=== PATIENT | female | born 1995 | race Caucasian/White ===

== ENCOUNTER 2016-09-16 21:35 | Outpatient (CLI) | payer MEDICAID ==
[2016-09-16] MEDS ORDERED: ACETAMINOPHEN 325 MG TABLET ONE (23:19)
[2016-09-16 23:41] LABS: APPEARANCE,URINE SLIGHTLY-CLOUDY; BILIRUBIN,URINE NEGATIVE (NEGATIVE); GLUCOSE, URINE NEGATIVE (NEGATIVE); KETONES,URINE NEGATIVE (NEGATIVE); LEUKOCYTE ESTERASE,URINE MODERATE (NEGATIVE); NITRITE,URINE NEGATIVE (NEGATIVE); PROTEIN,URINE NEGATIVE (NEGATIVE); URINE SPECIFIC GRAVITY 1.005; UROBILINOGEN,URINE NEGATIVE mg/dL (<2.0)
[2016-09-17 00:13] LABS: URINE BARBITURATES SCREEN NEGATIVE; URINE METHADONE SCREEN NEGATIVE; URINE OPIATES LOW NEGATIVE; URINE PHENCYCLIDINE SCREEN NEGATIVE
[2016-09-17] MEDS ORDERED: ZOLPIDEM TARTRATE 5 MG TABLET ONE (00:25)
[2016-09-17] MEDS ORDERED: ZOLPIDEM TARTRATE 5 MG TABLET PO ONE (00:30)
--- NOTE | 2016-09-17 01:02 | Non Stress Test Report ---
Non Stress Test Datetime Report Generated by CPN: 09/17/2016 01:02 DEMOGRAPHIC EGA NST: 39.0 INDICATION Indication for Study: Ordered by Provider VITAL SIGNS Temperature - NST: 98.0 Pulse - NST: 114 RESP - NST: 16 NBPSYS NST: 131 NBPDIA NST: 71 MONITORING Monitor Explained: Monitor Explained; Test Explained; Patient Verbalized Understanding Time on Monitor: 09/16/2016 21:49 Time off Monitor: 09/17/2016 00:31 NST Duration: 162 NST INTERVENTIONS NST Interventions: PO Hydration Physician Notified NST: Dr Neilsen BABY A: [id number] BABY A Movement : Present Contraction Frequency : irreg FHR Baseline : 150 Accelerations : 15X15 Decelerations : None Variability : Moderate 6-25bpm NST Review: Meets Criteria for Reactive NST NST Review and Verified By : SURI LORENZO Results: Reactive NST REPORT Report Trigger: Send Report
--- NOTE | 2016-09-17 04:46 | Antepartum Discharge Summary ---
Antepartum DC Datetime Report Generated by CPN: 09/17/2016 04:45 DIET/ACTIVITY/RESTRICTIONS Diet: Regular (09/17/2016 01:01:July Ledgerwood, RN) Activity: Normal Activity (09/17/2016 01:01:July Ledgerwood, RN) TEACHING/INSTRUCTIONS/REFERRALS Instructions Given To: pt (09/17/2016 01:01:July Ledgerwood, RN) Instructions Understood: Patient Verbalized Understanding (09/17/2016 01:01:July Ledgerwood, RN) Referrals: None (09/17/2016 01:01:July Baig RN) Educational Materials- Other: The Labor Process (09/17/2016 01:01:July Baig RN) DISCHARGE INFORMATION Discharged AMA: No (09/17/2016 01:01:July Baig RN) Physician Notified of Disch AMA: Dr Jones (09/17/2016 01:01:July Baig RN) Discharge Date/Time: 09/17/2016 00:44 (09/17/2016 01:01:July Baig RN) Discharged To: Home (09/17/2016 01:01:July Baig RN) Accompanied By: (09/17/2016 01:01:July Baig RN) Discharge Method: Wheelchair (09/17/2016 01:01:July Baig RN) Condition: Stable (09/17/2016 01:01:July Baig RN) FOLLOW UP INFORMATION Follow Up With: [facility] (09/17/2016 01:01:July Baig RN) Follow Up On: As Scheduled (09/17/2016 01:01:July Baig RN) Follow Up Phone Number: [facility] - (09/17/2016 01:01:July Baig RN) Comments: notified of pt's pain during contractions 4 oit 5. Ambien 10 mg was ordered. (09/17/2016 01:01:July Baig RN)
--- NOTE | 2016-09-17 04:46 | L&D Current Admission ---
Current Admit Datetime Report Generated by CPN: 09/17/2016 04:45 ADMISSION INFORMATION Chief Complaint: Contractions; Vaginal Bleeding 09/16/2016 21:54:COLTON Payne
--- NOTE | 2016-09-17 04:46 | L&D Discharge Summary ---
OB Discharge Summary Datetime Report Generated by CPN: 09/17/2016 04:45 DISCHARGE DIAGNOSIS Diagnosis/Symptoms: False Labor Diagnoses/Symptoms Other: Not in labor, no preeclampsia Gestation: 39.0 Number of Babies in Womb: 1 Parity: 0 DIET/ACTIVITY/RESTRICTIONS Diet: Regular Activity: Normal Activity TEACHING/INSTRUCTIONS/REFERRALS Instructions Given To: pt Instructions Understood: Patient Verbalized Understanding Referrals: None Educational Materials- Other: The Labor Process DISCHARGE INFORMATION Discharged AMA: No Physician Notified of Disch AMA: Dr Neilsen Discharge Date/Time: 09/17/2016 00:44 Discharged To: Home Discharge Provider Name: Lucie Carlson CNM Accompanied By: Discharge Method: Wheelchair Condition: Stable FOLLOW UP INFORMATION Follow Up With: [facility] Follow Up On: As Scheduled Follow Up Phone Number: [facility] - Comments: MD notified of pt's pain during contractions 4 oit 5. Ambien 10 mg was ordered.
--- NOTE | 2016-09-17 04:46 | L&D Flow Sheet ---
LD Flowsheet Datetime Report Generated by CPN: 09/17/2016 04:45 Datetime: 09/17/2016 00:31 Patient Care Comments: monitors off (July Ledgerwood, RN) Datetime: 09/17/2016 00:30 Uterine Activity Monitor Mode: External; Palpation ([facility], [facility]) Quality: Mild ([facility], RN) Duration (sec): 40-60 ([facility], ) Resting Tone (Palpate): Relaxed ([facility]) Assessment A Monitor Mode: External US ([facility], ) FHR Baseline Rate : 150 ([facility], ) Variability: Moderate 6-25 bpm ([facility]) Accelerations: 15X15 ([facility], RN) Decelerations: None ([facility], ) Teaching Instructional Method: Demo; Verbal; Written; Patient Instructed (July Reevesgerwood, RN) Related: Activity and Rest (July Ledgerwood, RN) Teaching Comments: The Labor Process (July Ledgerwood, RN) Datetime: 09/17/2016 00:28 Medications Analgesics/Sedatives: Ambien (mg) @ 10 (July Ledgerwood, RN) Datetime: 09/17/2016 00:16 Communication Communication: Provider Orders Received; Call/Page Placed to Provider (July Baig RN) Communication Comments: Dr Jones notified of pts progress. Order for 10 ambien po received and D/C order received. (July Baig, RN) Datetime: 09/17/2016 00:09 Vaginal Exam Dilatation (cm): 3.0 (July Baig, RN) Effacement (%): 80 (July Baig, RN) Station: -2 (July Baig, RN) Exam by: Lenard Baig RN (July Baig RN) Datetime: 09/16/2016 23:22 Medications Analgesics/Sedatives: Tylenol 650mg PO (Mare Lattibeaudeir, RN) Datetime: 09/16/2016 23:01 Patient Care Comments: monitors off, pt to walk for an hour. (July Ledgerwood, RN) Datetime: 09/16/2016 23:00 Uterine Activity Monitor Mode: External (July Ledgerwood, RN) Frequency (min): irregular (Nancy Kossmann, RN) Quality: Mild (Nancy Kossmann, RN) Duration (sec): 50-70 ([facility] Duration Criteria: Less than Two 120 Second Contractions ([facility]) Resting Tone (Palpate): Relaxed ([facility]) Assessment A Monitor Mode: External US (Nancy Kossmann, RN) FHR Baseline Rate : 150 (Nancy Magalysmann, RN) FHR Baseline Changes: No Baseline Change (July Ledgerwood, RN) Variability: Moderate 6-25 bpm (Nancy Kossmann, RN) Accelerations: 15X15 (Nancy Kossmann, RN) Decelerations: None (Nancy Kossmann, RN) Datetime: 09/16/2016 22:55 Communication Communication: Provider Orders Received (July Ledgerwood, RN) Communication Comments: Dr Neilse was notified of pt's change, order received to walk a pt for an hour and recheck. (July Ledgerwood, RN) Datetime: 09/16/2016 22:53 Vaginal Exam Dilatation (cm): 2.5 (July Ledgerwood, RN) Effacement (%): 80 (July Ledgerwood, RN) Station: -2 (July Ledgerwood, RN) Exam by: O Ledgerwood RN (July Ledgerwood, RN) Datetime: 09/16/2016 22:52 Vital Signs NBP Sys/Becca/Mean (mmHg): 131 (QS system process) : 71 (QS system process) : 93 (QS system process) Pulse: 114 (QS system process) Respirations: 16 (July Baig RN) LaborFlag: Antepartum (QS system process) Datetime: 09/16/2016 22:30 Uterine Activity Monitor Mode: External (July Baig, RN) Frequency (min): 3-5 (Nancy Obrien RN) Quality: Mild/Moderate (July Baig RN) Duration (sec): 30-90 (Nancy Obrien RN) Duration Criteria: Less than Two 120 Second Contractions (July Baig, RN) Pattern: Normal: <= 5 Contractions in 10 Minutes (July Baig RN) Resting Tone (Palpate): Relaxed (Nancy Obrien RN) Assessment A Monitor Mode: External US (Nancy Kossmann, RN) FHR Baseline Rate : 150 (Nancy Kossmann, RN) FHR Baseline Changes: No Baseline Change (July Ledgerwood, RN) Variability: Moderate 6-25 bpm (Nancy Kossmann, RN) Accelerations: None (July Ledgerwood, RN) Decelerations: None (July Ledgerwood, RN) Datetime: 09/16/2016 22:12 Patient Care I/O Interventions: Popsicle (July Ledgerwood, RN) Datetime: 09/16/2016 21:54 Pain Pain Scale: 4 ([facility]) Pain Presence: Intermittent ([facility]) Pain Type: Contraction ([facility]) Pain Location: Abdomen; Back ([facility]) Pain Coping: Breathing Through Contractions ([facility]) Vaginal Bleeding: pt repiorts vaginal bleeding ([facility]) Maternal Assessment Level of Consciousness: Fully Conscious ([facility]) DTR's/Clonus: DTRs 2+; No Clonus ([facility]) Headache: Denies ([facility]) Breath Sounds, Left: Clear and Equal (July Baig RN) Breath Sounds, Right: Clear and Equal (July Baig RN) Nausea/Vomiting: Denies (July Baig RN) RUQ Epigastric Pain: Denies (July Baig RN) Teaching Instructional Method: Demo; Verbal; Patient Instructed (July Baig RN) Plan of Care: Plan of Care Discussed (July Baig RN) Unit Routine: [place] to Room; Call Reese; Bed; Visiting Policy; Monitoring; Safety/Fall Risk Prevention (July Baig RN) LaborFlag: Antepartum (QS system process) Datetime: 09/16/2016 21:52 Vital Signs NBP Sys/Becca/Mean (mmHg): 126 (QS system process) : 83 (QS system process) : 98 (QS system process) Pulse: 111 (QS system process) Respirations: 16 (July Baig RN) LaborFlag: Antepartum (QS system process) Datetime: 09/16/2016 21:49 Vaginal Exam Dilatation (cm): 2.0 (July Baig RN) Effacement (%): 80 (July Baig RN) Station: -2 (July Baig RN) Exam by: Lenard Baig RN (July Baig RN) Vaginal Exam Comments: tight two (July Baig RN)
--- NOTE | 2016-09-17 04:46 | L&D General Admission ---
General Admit Datetime Report Generated by CPN: 09/17/2016 04:45 INFORMATION Patient Age: 21 (09/03/2016 11:54:QS system process) EDC: 09/23/2016 00:00 (09/03/2016 12:35:Lauren Rogers RN) : 1 (09/03/2016 12:35:Lauren Rogers RN) Para: 0 (09/03/2016 12:35:Nevaeh Owens RN) Term: 0 (09/03/2016 12:35:Lauren Rogers RN) : 0 (09/03/2016 12:35:Lauren Rogers RN) Spontaneous Abortions: 0 (09/03/2016 12:35:Lauren Rogers RN) Induced Abortions: 0 (09/03/2016 12:35:Lauren Rogers RN) Livin (09/03/2016 12:35:Lauren Rogers RN) Cesareans: 0 (09/03/2016 12:35:Mare Diehl RN) VBACs: 0 (09/03/2016 12:35:Mare Diehl RN) Ectopic: 0 (09/03/2016 12:35:Mare Diehl RN) Multiple Births: 0 (09/03/2016 12:35:Mare Diehl RN) Baby, Number in Womb: 1 (09/03/2016 12:35:Nevaeh Owens RN) CARE Primary Supervisor [employer]: [facility] (09/03/2016 12:35:Lauren Rogers RN) Supervisor [employer] Other: [facility] (09/03/2016 12:35:Lauren Rogers RN) Adequate Care: Yes (09/03/2016 12:35:July Baig RN) Prepregnancy Weight (lb): 124 (09/03/2016 12:35:Lauren Rogers RN) Prepregnancy Weight (kg): 56.4 (09/03/2016 12:35:QS system process) Height (in): 66 (09/17/2016 00:21:QS system process) Height (in): 66 (09/03/2016 12:28:QS system process) Height (in): 66 (09/03/2016 12:14:QS system process) ALLERGIES Medication Allergy: No (09/03/2016 12:35:Lauren Rogers RN) Medication Allergies: No Known Allergies (09/03/2016) (09/03/2016 12:12:QS system process) Medication Allergies: No Known Allergies (11/01/2014) (09/03/2016 11:54:QS system process) Latex Allergy: No Latex Allergies (09/03/2016 12:35:Lauren Rogers RN) COMMUNICATION Primary Language: Maori (09/03/2016 12:35:Lauren Rogers RN) Medical Tx Preferred Language: Maori (09/03/2016 12:35:Lauren Rogers RN) DEMOGRAPHICS Address: [facility] [address] [place] [address] (09/03/2016 11:54:QS system process) Zipcode: [address] (09/03/2016 11:54:QS system process) Home (09/16/2016 21:35:QS system process) Home (09/03/2016 11:54:QS system process) SSN: [id number] (09/03/2016 11:54:QS system process) Next of Kin Name: FARZAD VASQUEZ (09/03/2016 11:54:QS system process) Next of Kin (09/03/2016 11:54:QS system process) Next of Kin Relationship: OR (09/03/2016 11:54:QS system process) Date of : 1995 (09/03/2016 11:54:QS system process) Marital Status: Single (09/03/2016 11:54:QS system process) Sex: Female (09/03/2016 11:54:QS system process) Race: (09/03/2016 11:54:QS system process) Ethnicity: Non- or (09/03/2016 11:54:QS system process) Sabianist: None (09/03/2016 11:54:QS system process) DRUG AND ALCOHOL USE Alcohol: No (09/03/2016 12:35:Lauren Rogers RN) Cigarettes: Never Smoker. [id number] (09/03/2016 12:35:Lauren Rogers RN) Marijuana: No (09/03/2016 12:35:Lauren Rogers RN) Cocaine: No (09/03/2016 12:35:Lauren Rogers RN) Other Illicit Drugs: No (09/03/2016 12:35:Lauren Rogers RN) VACCINE HISTORY Influenza Vaccine: Yes (09/03/2016 12:35:Lauren Rogers RN) Influenza Date: 03/2016 (09/03/2016 12:35:Lauren Rogers RN) Pneumococcal Vaccine: No (09/03/2016 12:35:Lauren Rogers RN) Tetanus Vaccine: No (09/03/2016 12:35:Lauren Rogers RN) Tdap Vaccine: No (09/03/2016 12:35:Lauren Rogers RN) Hepatitis B Vaccine: No (09/03/2016 12:35:Lauren Rogers RN) Bottom Turning Lathe Tender: [facility] (09/03/2016 12:35:Lauren Rogers RN) Feeding Preference: Breast (09/03/2016 12:35:Lauren Rogers RN) Benefit of Breast Feed Discussed: Yes (09/03/2016 12:35:aLuren Rogers RN) Circumcision: Yes (09/03/2016 12:35:Lauren Rogers RN) Classes Attended: No (09/03/2016 12:35:Lauren Rogers RN) Tubal Ligation: No (09/03/2016 12:35:Lauren Rogers RN) Tubal Authorization Signed: N/A (09/03/2016 12:35:Lauren Rogers RN) Consent: N/A (09/03/2016 12:35:Lauren Rogers RN) Consent Signed: N/A (09/03/2016 12:35:Lauren Rogers RN) Pain Management Plans: Epidural (09/03/2016 12:35:Lauren Rogers RN) Plans for Labor and Delivery: None (09/03/2016 12:35:Lauren Rogers RN) Support Person: Farzad Vasquez (09/03/2016 12:35:Lauren Rogers RN) Support Person Relationship: Significant Other (09/03/2016 12:35:Lauren Rogers RN) Cultural/Spritual Practice: No (09/03/2016 12:35:Lauren Rogers RN) Spir/Cult Dietary Needs: No (09/03/2016 12:35:Lauren Rogers RN) LIVING SITUATION/DISCHARGE PLAN Living Arrangements: House (09/03/2016 12:35:Lauren Rogers RN) Adequate Access to:: Electric; Heat; Refrigeration; Plumbing/Running water; Phone; Transportation (09/03/2016 12:35:Lauren Rogers RN) WIC Program: Yes (09/03/2016 12:35:Lauren Rogers RN) Discharge Secretary Of State Person: Sig other (09/03/2016 12:35:Lauren Rogers RN) Person to Help after Discharge: Sig other (09/03/2016 12:35:Lauren Rogers RN) Currently Using Commun Resources: Yes (09/03/2016 12:35:Lauren Rogers RN) Specify Current Resource Used: food stamps (09/03/2016 12:35:Lauren Rogers RN) Outside Agency/Rn Lvn: No (09/03/2016 12:35:Lauren Rogers RN) Car Seat for Discharge: Yes (09/03/2016 12:35:Lauren Rogers RN) Adoption Requested: No (09/03/2016 12:35:Lauren Rogers RN) Pt Contact w/ Post : N/A (09/03/2016 12:35:Lauren Rogers RN) LABS Blood Type: B Negative (09/03/2016 12:35:Lauren Rogers RN) Antibody Screen: negative (09/03/2016 12:35:Lauren Rogers RN) Hemoglobin: 10.8 L (09/03/2016 13:27:QS system process) Hematocrit: 32.8 L (09/03/2016 13:27:QS system process) MCV: 78 L (09/03/2016 13:27:QS system process) Group Beta Strep: negative (09/03/2016 12:35:Lauren Rogers RN) Gonorrhea: Negative (09/03/2016 12:35:Lauren Rogers RN) Chlamydia: Negative (09/03/2016 12:35:Lauren Rogers RN) RPR/VDRL: Nonreactive (09/03/2016 12:35:Lauren Rogers RN) Rubella: Immune (09/03/2016 12:35:Lauren Rogers RN) Varicella: Non Susceptible (09/03/2016 12:35:Lauren Rogers RN) OB/PREVIOUS HISTORY Current Procedures: Ultrasound (09/03/2016 12:35:Lauren Rogers RN) History of Previous : No (09/03/2016 12:35:Lauren Rogers RN) History of Gestational Diabetes: No (09/03/2016 12:35:Lauren Rogers RN) History of PIH: No (09/03/2016 12:35:Lauren Rogers RN) History of Incompetent Cervix: No (09/03/2016 12:35:Lauren Rogers RN) History of Placenta Previa/Abrup: No (09/03/2016 12:35:Lauren Rogers RN) History of Macrosomia: No (09/03/2016 12:35:Lauren Rogers RN) History of IUGR: No (09/03/2016 12:35:Lauren Rogers RN) History of Hemorrhage: No (09/03/2016 12:35:Lauren Rogers RN) History of Loss/Stillborn: No (09/03/2016 12:35:Lauren Rogers RN) History of : No (09/03/2016 12:35:Lauren Rogers RN) History of D (Rh) Sensitization: No (09/03/2016 12:35:Lauren Rogers RN) History Recurrent Loss/Stillborn: No (09/03/2016 12:35:Lauren Rogers RN) History Depression/PP Depression: Yes (09/03/2016 12:35:Lauren Rogers RN) History of Uterine Anomaly/JEAN: No (09/03/2016 12:35:Lauren Rogers RN) History of Infertility: No (09/03/2016 12:35:Lauren Rogers RN) History of ART Treatment: No (09/03/2016 12:35:Lauren Rogers RN) History of JEAN: No (09/03/2016 12:35:Lauren Rogers RN) Comments Obstetrical History: G1: current (09/03/2016 12:35:Lauren Rogers RN) MEDICAL HISTORY Med Hx Diabetes: No (09/03/2016 12:35:Lauren Rogers RN) Med Hx Hypertension: No (09/03/2016 12:35:Lauren Rogers RN) Med Hx Heart Disease: No (09/03/2016 12:35:Lauren Rogers RN) Med Hx Autoimmune Disorder: No (09/03/2016 12:35:Lauren Rogers RN) Med Hx Kidney Disease/UTI: No (09/03/2016 12:35:Lauren Rogers RN) Med Hx Neurologic/Epilepsy: No (09/03/2016 12:35:Lauren Rogers RN) Med Hx Psychiatric Disorders: No (09/03/2016 12:35:Lauren Rogers RN) Med Hx Hepatitis/Liver Disease: No (09/03/2016 12:35:Lauren Rogers RN) Med Hx Varicosities/Phlebitis: No (09/03/2016 12:35:Lauren Rogers RN) Med Hx Thyroid Dysfunction: No (09/03/2016 12:35:Lauren Rogers RN) Med Hx Trauma/Violence: No (09/03/2016 12:35:Lauren Rogers RN) Med Hx Blood Transfusion: No (09/03/2016 12:35:Lauren Rogers RN) Med Hx Pulmonary (Asthma,TB): No (09/03/2016 12:35:Lauren Rogers RN) Med Hx Breast: No (09/03/2016 12:35:Lauren Rogers RN) Med Hx DIRECTOR REGULATORY AFFAIRS Surgery: No (09/03/2016 12:35:Lauren Rogers RN) Med Hx Hospitalization/Surgery: No (09/03/2016 12:35:Lauren Rogers RN) Med Hx Anesthetic Complications: No (09/03/2016 12:35:Lauren Rogers RN) Med Hx Abnormal Pap Smear: No (09/03/2016 12:35:Lauren Rogers RN) Other Medical Diseases: No (09/03/2016 12:35:Lauren Rogers RN) Med Hx Significant Family Hx: No (09/03/2016 12:35:Lauren Rogers RN) Details of Med/Surg Hx: depression _ anxiety (on zoloft), homicidal ideation in past (09/03/2016 12:35:Lauren Rogers RN) INFECTIOUS HISTORY Inf Hx Gonorrhea: No (09/03/2016 12:35:Lauren Rogers RN) Inf Hx Chlamydia: No (09/03/2016 12:35:Lauren Rogers RN) Inf Hx Syphilis: No (09/03/2016 12:35:Lauren Rogers RN) Inf Hx HIV/AIDS: No (09/03/2016 12:35:Lauren Rogers RN) Inf Hx Human Papilloma Virus: No (09/03/2016 12:35:Lauren Rogers RN) Inf Hx Pt/Partner Genital Herpes: No (09/03/2016 12:35:Lauren Rogers RN) Inf Hx Tuberculosis/Exposure: No (09/03/2016 12:35:Lauren Rogers RN) Inf Hx Hepatitis B,C: No (09/03/2016 12:35:Lauren Rogers RN) Inf Hx Rash or Viral Illness: No (09/03/2016 12:35:Lauren Rogers RN) GENETIC HISTORY Gen Hx Age >=35 at JOYCE: No (09/03/2016 12:35:Lauren Rogers RN) Gen Hx Thalassemia: No (09/03/2016 12:35:Lauren Rogers RN) Gen Hx Congenital Heart Defect: No (09/03/2016 12:35:Lauren Rogers RN) Gen Hx Neural Tube Defect: No (09/03/2016 12:35:Lauren Rogers RN) Gen Hx Down's Syndrome: No (09/03/2016 12:35:Lauren Rogers RN) Gen Hx Kenney-Sachs: No (09/03/2016 12:35:Lauren Rogers RN) Gen Hx Freddy: No (09/03/2016 12:35:Lauren Rogers RN) Gen Hx Familial Dysautonomia: No (09/03/2016 12:35:Lauren Rogers RN) Gen Hx Sickle Cell Disease/Trait: No (09/03/2016 12:35:Lauren Rogers RN) Gen Hx Hemophilia/Blood Disorder: No (09/03/2016 12:35:Lauren Rogers RN) Gen Hx Muscular Dystrophy: No (09/03/2016 12:35:Lauren Rogers RN) Gen Hx Cystic Fibrosis: No (09/03/2016 12:35:Lauren Rogers RN) Gen Hx Huntingtons Chorea: No (09/03/2016 12:35:Lauren Rogers RN) Gen Hx Mental Retardation/Autism: No (09/03/2016 12:35:Lauren Rogers RN) Gen Hx Tested for Fragile X: No (09/03/2016 12:35:Lauren Rogers RN) Gen Hx Other Inher/Chromosomal: No (09/03/2016 12:35:Lauren Rogers RN) Gen Hx Maternal Metabolic DO: No (09/03/2016 12:35:Lauren Rogers RN) Gen Hx Pt Father or FOB Defect: No (09/03/2016 12:35:Lauren Rogers RN) Gen Hx Other Genetic History: No (09/03/2016 12:35:Lauren Rogers RN) Gen Hx Drugs/Meds since LMP: Yes (09/03/2016 12:35:Lauren Rogers RN) Gen Hx Medications: PNV, Zoloft (09/03/2016 12:35:Lauren Rogers RN)
--- NOTE | 2016-09-17 04:46 | L&D Admission Assessment ---
LD ADM ASMT Datetime Report Generated by CPN: 09/17/2016 04:45 PATIENT ASSESSMENT Assessment Type: Triage (09/16/2016 21:54:[facility] WEIGHT Weight (lb): 176 (09/17/2016 00:21:QS system process) Weight (kg): 80.0 (09/17/2016 00:21:QS system process) Total Wt Gain (lb): 52 (09/17/2016 00:21:QS system process) Wt Gain (kg): 23.6 (09/17/2016 00:21:QS system process) BMI: 28.4 (09/17/2016 00:21:QS system process) PAIN Pain Scale: 4 (09/16/2016 21:54:July Baig RN) Pain Presence: Intermittent (09/16/2016 21:54:July Baig RN) Pain Type: Contraction (09/16/2016 21:54:July Baig RN) Pain Location: Abdomen; Back (09/16/2016 21:54:July Baig RN) CONTRACTIONS Frequency (min): irregular (09/16/2016 23:00:Nancy Obrien RN) Frequency (min): 3-5 (09/16/2016 22:30:Nancy Obrien RN) Duration (sec): 40-60 (09/17/2016 00:30:Nancy Obrien RN) Duration (sec): 50-70 (09/16/2016 23:00:July Baig RN) Duration (sec): 30-90 (09/16/2016 22:30:Nancy Obrien RN) Quality: Mild (09/17/2016 00:30:Nancy Obrien RN) Quality: Mild (09/16/2016 23:00:Nancy Obrien RN) Quality: Mild/Moderate (09/16/2016 22:30:July Baig RN) Pattern: Normal: <= 5 Contractions in 10 Minutes (09/16/2016 22:30:July Baig RN) Resting Tone [place]: Relaxed (09/17/2016 00:30:Nancy Obrien RN) Resting Tone [place]: Relaxed (09/16/2016 23:00:Nancy Obrien RN) Resting Tone [place]: Relaxed (09/16/2016 22:30:Nancy Obrien RN) VAGINAL EXAM Dilatation (cm): 3.0 (09/17/2016 00:09:July Baig RN) Dilatation (cm): 2.5 (09/16/2016 22:53:July Baig RN) Dilatation (cm): 2.0 (09/16/2016 21:49:July Baig RN) Effacement (%): 80 (09/17/2016 00:09:July Baig RN) Effacement (%): 80 (09/16/2016 22:53:uJly Baig RN) Effacement (%): 80 (09/16/2016 21:49:uJly Baig RN) Station: -2 (09/17/2016 00:09:July Baig RN) Station: -2 (09/16/2016 22:53:July Baig, SUIR) Station: -2 (09/16/2016 21:49:July Baig RN) NEURO Level of Consciousness: Fully Conscious (09/16/2016 21:54:July Baig RN) DTR's/Clonus: DTRs 2+; No Clonus (09/16/2016 21:54:July Baig RN) Headache: Denies (09/16/2016 21:54:July Baig RN) Dizziness: No (09/16/2016 21:54:July Baig RN) Blurred Vision: No (09/16/2016 21:54:July Baig RN) Extremity Numbness/Tingling : None (09/16/2016 21:54:July Baig RN) Extremity Movement: Full Range of Motion (09/16/2016 21:54:July Baig RN) CARDIOVASCULAR Nailbeds: [place] (09/16/2016 21:54:July [place], RN) Capillary Refill: Less than 3 Seconds (09/16/2016 21:54:July Led[place], RN) Facial Edema: None (09/16/2016 21:54:July Led[place], RN) Marco's Sign Left Leg: Negative (09/16/2016 21:54:July Led[place], RN) Marco's Sign Right Leg: Negative (09/16/2016 21:54:July [place], RN) RESPIRATORY Respiratory Effort: Unlabored; Regular Rhythm; Equal Expansion (09/16/2016 21:54:July Led[place], RN) Breath Sounds, Left: Clear and Equal (09/16/2016 21:54:July [place], RN) Breath Sounds, Right: Clear and Equal (09/16/2016 21:54:July [place], RN) Cough Productivity: None (09/16/2016 21:54:July Led[place], RN) GASTROINTESTINAL Nausea/Vomiting: Denies (09/16/2016 21:54:July Led[place], RN) Bowel Sounds: Normoactive; All Quadrants (09/16/2016 21:54:July Baig RN) RUQ Epigastric Pain: Denies (09/16/2016 21:54:July Baig RN) Bowel Patterns: Constipation (09/16/2016 21:54:July Baig RN) Hemorrhoids: None (09/16/2016 21:54:July Baig RN) Diet Type: Regular diet (09/16/2016 21:54:July Baig RN) Last Meal: 09/16/2016 19:30 (09/16/2016 21:54:July Baig RN) GENITOURINARY Bladder: Nondistended (09/16/2016 21:54:July Baig RN) Frequency of Urination: No (09/16/2016 21:54:July Baig RN) Urination Burning: No (09/16/2016 21:54:July Baig RN) CVA Tenderness: No (09/16/2016 21:54:July Baig RN) Vaginal Discharge Color: N/A (09/16/2016 21:54:July Baig RN) INTEGUMENTARY Skin Color: Normal for Race (09/16/2016 21:54:July Baig RN) Skin Temperature: Warm (09/16/2016 21:54:July Baig RN) Skin Moisture: Dry (09/16/2016 21:54:July Baig RN) VIOLETTE SKIN ASSESSMENT Violette Scale Sensory Perception: No Impairment- Responds to verbal commands. Has no sensory deficit which would limit ability to feel or voice pain or discomfort (09/16/2016 21:54:July Baig RN) Violette Scale Moisture: Rarely Moist- Skin is usually dry. Linen only requires changing at routine intervals (09/16/2016 21:54:July Baig RN) Violette Scale Activity: Walks Frequently- Walks outside the room at least twice a day and inside room at least every 2 hours during the day. (09/16/2016 21:54:July Baig RN) Violette Scale Mobility: No Limitations- Makes major and frequent changes in position without assistance (09/16/2016 21:54:July Baig RN) Violette Scale Nutrition: Excellent- Eats most of every meal. Never refuses a meal. Usually eats a total of 4 or more servings of meat and dairy products. Occasionally eats between meals. Does not require supplementation (09/16/2016 21:54:July Baig RN) Violette Scale Friction and Shear: No Apparent Problem- Moves in bed and in chair independently and has sufficient muscle strength to lift up completely during move. Maintains good position in bed or chair at all times (09/16/2016 21:54:July Baig RN) Violette Scale Total: 23 (09/16/2016 21:54:QS system process) Violette Scale Risk: No Risk of Pressure Ulcer Noted at this Time (09/16/2016 21:54:QS system process) SUPPORT Family Support: Significant Other supportive, at bedside frequently; Family supportive (09/16/2016 21:54:July Baig RN) Emotional State: Anxious (09/16/2016 21:54:July Baig RN) SAFETY Call [place] Within Reach: Yes (09/16/2016 21:54:July Baig RN) Side Rails Up: Yes (09/16/2016 21:54:July Baig RN) Bed Wheels Locked: Yes (09/16/2016 21:54:July Baig RN) Arm Bands Present: Yes (09/16/2016 21:54:July Baig RN) FALL SCREEN Fall Risk History of Falling: (0) No (09/16/2016 21:54:July Baig RN) Fall Risk Secondary Diagnosis: (0) No (09/16/2016 21:54:July Baig RN) Fall Risk Ambulatory Aid: (0) None/Bedrest/Wheelchair/Nurse Assist (09/16/2016 21:54:July Baig RN) Fall Risk IV Therapy: (0) No (09/16/2016 21:54:July Baig RN) Fall Risk Gait: (0) Normal/Bedrest/Immobile (09/16/2016 21:54:July Baig RN) Fall Risk Mental Status: (0) Oriented to Own Ability (09/16/2016 21:54:July Baig RN) Fall Risk Score: 0 (09/16/2016 21:54:QS system process) Fall Risk Score Definition: No Risk: No action required (09/16/2016 21:54:QS system process) RECENT TRAVEL/INFECTIOUS DISEASE Pt/Family Education: Handwashing Hygiene (09/16/2016 21:54:July Baig RN) BABY A FHR Baseline Rate (bpm) Baby A: 150 (09/17/2016 00:30:Nancy Obrien RN) FHR Baseline Rate (bpm) Baby A: 150 (09/16/2016 23:00:Nancy Obrien RN) FHR Baseline Rate (bpm) Baby A: 150 (09/16/2016 22:30:Nancy Obrien RN) Variability Baby A: Moderate 6-25 bpm (09/17/2016 00:30:Nancy Obrien RN) Variability Baby A: Moderate 6-25 bpm (09/16/2016 23:00:Nancy Obrien RN) Variability Baby A: Moderate 6-25 bpm (09/16/2016 22:30:Nancy Obrien RN) Accelerations Baby A: 15X15 (09/17/2016 00:30:Nancy Obrien RN) Accelerations Baby A: 15X15 (09/16/2016 23:00:Nancy Obrien RN) Accelerations Baby A: None (09/16/2016 22:30:July Baig RN) Decelerations Baby A: None (09/17/2016 00:30:Nancy Obrien RN) Decelerations Baby A: None (09/16/2016 23:00:Nancy Obrien RN) Decelerations Baby A: None (09/16/2016 22:30:July Baig RN)
== END 2016-09-17 00:44 | disposition home or self-care (01) ==
LOC: LC 21:35
PROVIDERS: ATTEND Specialist
PROC: 4A1HXCZ Monitoring of Products of Conception, Cardiac Rate, External Approach (ICD-10-PCS; principal; 2016-09-16)
DX: O47.1 False labor at or after 37 completed weeks of gestation (principal); Z3A.39 39 weeks gestation of pregnancy
CPT/HCPCS: 59025; 81005; 80307; J3490 ×2

== ENCOUNTER 2016-09-17 21:28 | Inpatient (IN) | payer MEDICAID ==
[2016-09-17 22:15] LABS: APPEARANCE,URINE TURBID; BILIRUBIN,URINE NEGATIVE (NEGATIVE); GLUCOSE, URINE NEGATIVE (NEGATIVE); KETONES,URINE 80 mg/dL (NEGATIVE); LEUKOCYTE ESTERASE,URINE MODERATE (NEGATIVE); NITRITE,URINE NEGATIVE (NEGATIVE); PROTEIN,URINE 100 mg/dL (NEGATIVE); URINE SPECIFIC GRAVITY 1.024; UROBILINOGEN,URINE NEGATIVE mg/dL (<2.0)
[2016-09-17 22:19] LABS: HEMATOCRIT 31.7 % (36.0-47.0); HEMOGLOBIN 10.2 g/dL (12.0-15.5); HGB HCT DIFFERENCE -1.1; MEAN CORPUSCULAR HEMOGLOBIN 24.5 pg (27.0-33.4); MEAN CORPUSCULAR HGB CONC 32.2 g/dL (32.0-36.0); MEAN CORPUSCULAR VOLUME 76 fl (80-97); RED BLOOD COUNT 4.16 10^6/uL (3.72-5.28); RED CELL DISTRIBUTION WIDTH 15.1 % (11.5-14.0); WHITE BLOOD COUNT 28.2 10^3/uL (4.0-10.5)
[2016-09-17 22:35] LABS: BAND NEUTROPHILS % (MANUAL) 2 % (3-5); BASOPHILS % (MANUAL) 0 % (0-2); EOSINOPHILS % (MANUAL) 0 % (0-6); LYMPHOCYTES % (MANUAL) 7 % (13-45); TOTAL CELLS COUNTED 100
[2016-09-17] MEDS ORDERED: RINGERS SOLUTION,LACTATED 1,000 ML IV PRN (22:35)
[2016-09-17 22:37] LABS: ANISOCYTOSIS SLIGHT; HYPOCHROMASIA SLIGHT; MICROCYTOSIS 1+; POLYCHROMASIA SLIGHT
[2016-09-17] MEDS ORDERED: FENTANYL CITRATE INJ/PF 100 MCG/2 ML AMPUL ONE (22:52)
[2016-09-17] MEDS ORDERED: PHENYLEPHRINE HCL INJ/PF 10 MG/1 ML SDV ONE (22:52)
[2016-09-17] MEDS ORDERED: FENTANYL/BUPIVACAINE/NS/PF 200 MCG/100 ML RTUINJ EPI ONE (22:52)
[2016-09-17] MEDS ORDERED: EPHEDRINE SULFATE INJ 50 MG/1 ML AMPULE ONE (22:52)
[2016-09-17] MEDS ORDERED: OXYTOCIN/NORMAL SALINE 0 UNIT/0 ML RTUINJ ONE (22:53)
[2016-09-17] MEDS ORDERED: LIDOCAINE 1% INJ-PF (10 MG/ML) 30 ML SDV ONE (22:53)
[2016-09-17] MEDS ORDERED: MISOPROSTOL 0.2 MG TABLET ONE (22:53)
[2016-09-17] MEDS ORDERED: BUPIVACAINE HCL 0.25 % INJ/PF (2.5 MG/1 ML) 30 ML VIAL ONE (22:53)
[2016-09-18] MEDS ORDERED: CEFAZOLIN 2 GM/D5W RTU 2 GM/50 ML RTUPB IV ONE (03:43)
[2016-09-18] MEDS ORDERED: CITRIC ACID/SODIUM CITRATE ORAL SOLN 15 ML UDCUP ONE (03:43)
[2016-09-18] MEDS ORDERED: SODIUM BICARBONATE 8.4% INJ 50 MEQ/50 ML DISP.SYRIN ONE (03:45)
[2016-09-18] MEDS ORDERED: LIDOCAINE 2%/EPINEPHRINE INJ 20 ML VIAL ONE (03:45)
[2016-09-18] MEDS ORDERED: ACETAMINOPHEN 100 ML IV PRN (03:48)
[2016-09-18] MEDS ORDERED: OXYTOCIN/NORMAL SALINE 1,000 ML IV PRN (03:48)
[2016-09-18] MEDS ORDERED: MEASLES,MUMPS&RUBELLA VACC/PF 0.5 ML VIAL SUBCUT PRN (03:48)
[2016-09-18] MEDS ORDERED: OXYCODONE-ACETAMINOPHEN 5-325 MG TABLET PO PRN ×3 (03:48→04:46)
[2016-09-18] MEDS ORDERED: PROMETHAZINE HCL INJ 25 MG/1 ML VIAL IV PRN ×3 (03:48→04:46)
[2016-09-18] MEDS ORDERED: DIPH/PERTUSS(ACELL)/TETANUS VAC/PF 0.5 ML SYR (>=10YO) IM PRN (03:48)
[2016-09-18] MEDS ORDERED: RINGERS SOLUTION,LACTATED 1,000 ML IV PRN (03:48)
[2016-09-18] MEDS ORDERED: SIMETHICONE 80 MG TAB.CHEW PO PRN (03:48)
[2016-09-18] MEDS ORDERED: ACETAMINOPHEN 325 MG TABLET PO PRN (03:48)
[2016-09-18] MEDS ORDERED: OXYTOCIN 10 UNIT/ML VIAL ONE ×2 (03:54→04:21)
[2016-09-18] MEDS ORDERED: FENTANYL CITRATE INJ/PF 100 MCG/2 ML AMPUL ONE (03:54)
[2016-09-18] MEDS ORDERED: FENTANYL CITRATE INJ/PF 250 MCG/5 ML AMPULE ONE (03:55)
[2016-09-18] MEDS ORDERED: EPHEDRINE SULFATE INJ 50 MG/1 ML AMPULE ONE (03:55)
[2016-09-18] MEDS ORDERED: ONDANSETRON HCL INJ/PF 4 MG/2 ML SDV ONE (03:55)
[2016-09-18] MEDS ORDERED: MIDAZOLAM 2 MG/2 ML INJ ONE (03:55)
[2016-09-18] MEDS ORDERED: OXYTOCIN/NORMAL SALINE 20 UNIT/1,000 ML RTUINJ ONE (03:55)
[2016-09-18] MEDS ORDERED: KETOROLAC TROMETHAMINE INJ/PF 30 MG/1 ML SDV IV ONE (04:15)
[2016-09-18] MEDS ORDERED: MISOPROSTOL 0.2 MG TABLET ONE (04:25)
--- NOTE | 2016-09-18 04:43 | Operative Report ---
Operative Report DATE OF SURGERY: 09/18/16 PREOPERATIVE DIAGNOSIS: CPD macrosomia POSTOPERATIVE DIAGNOSIS: Same OPERATION: via low transverse uterine incision SURGEON: JERICHO BASHIR ANESTHESIA: Epidural TISSUE REMOVED OR ALTERED: Placenta COMPLICATIONS: None ESTIMATED BLOOD LOSS: 250 mL INTRAOPERATIVE FINDINGS: Viable baby boy Apgars 6 and 8 4069 g PROCEDURE: Patient was taken to the OR and placed in supine position after her spinal anesthesia. She is prepared and draped in sterile fashion. [place] was placed for drainage of the bladder. Low transverse incision was made and carried down the level of the fascia. The fascial incision was made with knife and extended bilaterally with curved Velásquez scissors. The fascia was off the rectus muscles using sharp and blunt dissection. The rectus muscles are in the midline. The peritoneum was entered without incident. Bladder blade was placed in uterine segment was identified. A low transverse incision was made creating a bladder flap. Bladder blade was placed low transverse uterine incision was made with the csafe knife and extended with fingertips. The baby was delivered with some fundal pressure. Mouth and nose were suctioned free. The cord is doubly clamped and cut. Baby is passed off to the nuisance animal damage control agent in attendance. The placenta was manually extracted with trailing membranes. The uterus was externalized wrapped in a moist lap sponge. Uterine contents wiped free. Uterus was closed with a running locking layer of 0 chromic suture using the second layer to imbricate the first completing a double layer closure of the uterus. The serosa was closed with a running 2-0 chromic stitch. The pelvis was irrigated and suctioned free of fluid the uterus was replaced in the abdomen. The abdominal wall peritoneum was closed with running 2-0 chromic stitch. Fascia was closed with a running 0 Vicryl in 2 segments. Cole's layer was brought together with 0 plain gut stitch and the skin was closed with skin christina. The wound was dressed mother and baby did well.
[2016-09-18] MEDS ORDERED: DIPHENHYDRAMINE HCL 50 MG/ML VIAL IV PRN (04:46)
[2016-09-18] MEDS ORDERED: MEPERIDINE HCL/PF INJ 25 MG/1 ML DISP.SYRIN IV PRN (04:46)
[2016-09-18] MEDS ORDERED: MORPHINE SULFATE 10 MG/ML INJ IV PRN (04:46)
[2016-09-18] MEDS ORDERED: FENTANYL CITRATE INJ/PF 100 MCG/2 ML AMPUL IV PRN ×3 (04:46)
[2016-09-18] MEDS ORDERED: MORPHINE SULFATE 10 MG/ML INJ ONE (05:26)
[2016-09-18] MEDS ORDERED: ACETAMINOPHEN 325 MG TABLET ONE (06:39)
--- NOTE | 2016-09-18 06:49 | Admission Physical ---
Datetime Report Generated by CPN: 09/18/2016 06:48 CURRENT ADMISSION Chief Complaint: Uterine Contractions Indication for Induction: Not Applicable Admit Plan: Admit to Unit; Initiate Labor Protocol ALLERGIES Medication Allergies: No Medication Allergies: No Known Allergies (09/18/2016) Medication Allergies: No Known Allergies (09/03/2016) Medication Allergies: No Known Allergies (11/01/2014) Latex: No Latex Allergies Food Allergies: none Environmental Allergies: none OBSTETRICAL HISTORY EDC: 09/23/2016 00:00 : 1 Para: 0 Term: 0 : 0 SAB: 0 IAB: 0 Ectopic: 0 Livin Cesareans: 0 VBACs: 0 Multiple Births: 0 Gestational Diabetes: No Rh Sensitization: No Incompetent Cervix: No JEAN: No Infertility: No ART Treatment: No Uterine Anomaly: No IUGR: No Hx Previous C/S: No Macrosomia: No Hx Loss/Stillborn: No PIH: No Hx : No Placenta Previa/Abruption: No Depression/PP Depression: No PTL/PROM: No Post Hemorrhage: No Current Procedures: Ultrasound Obstetrical History Comments: G1: current SEE RECORDS Alcohol: No Marijuana : No Cocaine: No Other Illicit Drugs: No Cigarettes: Never Smoker. 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: No Heart Disease: No Hosp/Surgery: No Autoimmune Disorder: No Anesthetic Complications: No Kidney Disease: No Abnormal Pap Smear: No Neuro/Epilepsy: No Psychiatric Disorders: No Other Medical Diseases: No Hepatitis/Liver Disease: No Significant Family History: No Varicosities/Phlebitis: No Trauma/Violence : No Thyroid Dysfunction: No Medical History Comments: depression _ anxiety (on zoloft), homicidal ideation in past INFECTIOUS HISTORY Gonorrhea: No Genital Herpes: No Chlamydia: No Tuberculosis: No Syphilis: No Hepatitis: No HIV/AIDS Exposure: No Rash or Viral Illness: No HPV: No PHYSICAL EXAM General: Normal HEENT: Normal Neurologic: Normal Thyroid: Normal Heart: Normal Lungs: Normal Breast: Deferred Back: Normal Abdomen: Normal Genitourinary Exam: Normal Extremities: Normal DTRs: Normal Pelvic Type: Adequate Vital Signs: Reviewed VAGINAL EXAM Dilatation: 9 Effacement: 80 Station: 0 MEMBRANES Pooling: Positive Membranes: Ruptured FETUS A EGA: 39.1 Monitoring: External US FHR- Baseline: 160 Variability: Minimal - Undetectable to <=5bpm Decelerations: None FHR Category: Category I Admit Comment: efw is 7-8 lbs PLANS FOR LABOR AND DELIVERY Labor and Delivery: None Pain Management: Epidural Feeding Preference: Breast Benefit of Breast Feed Discussed: Yes Circumcision: Yes INFORMED CONSENT Signature: with User ID: [email or web address]
--- NOTE | 2016-09-18 07:01 | L&D Flow Sheet ---
LD Flowsheet Datetime Report Generated by CPN: 09/18/2016 07:00 Datetime: 09/18/2016 06:28 NBP Sys/Becca/Mean (mmHg): 132 (QS system process) : 68 (QS system process) : 94 (QS system process) Pulse: 113 (QS system process) Datetime: 09/18/2016 06:27 Pulse: 112 (QS system process) SpO2 (%): 99 (QS system process) Datetime: 09/18/2016 06:22 Pulse: 113 (QS system process) SpO2 (%): 97 (QS system process) Datetime: 09/18/2016 06:17 Pulse: 112 (QS system process) SpO2 (%): 96 (QS system process) Datetime: 09/18/2016 06:13 NBP Sys/Becca/Mean (mmHg): 129 (QS system process) : 72 (QS system process) : 94 (QS system process) Pulse: 109 (QS system process) Datetime: 09/18/2016 06:12 Pulse: 108 (QS system process) SpO2 (%): 98 (QS system process) Datetime: 09/18/2016 06:07 Pulse: 108 (QS system process) SpO2 (%): 98 (QS system process) Datetime: 09/18/2016 06:02 Pulse: 111 (QS system process) SpO2 (%): 98 (QS system process) Datetime: 09/18/2016 05:58 NBP Sys/Becca/Mean (mmHg): 135 (QS system process) : 68 (QS system process) : 95 (QS system process) Pulse: 110 (QS system process) Datetime: 09/18/2016 05:57 Pulse: 108 (QS system process) SpO2 (%): 99 (QS system process) Datetime: 09/18/2016 05:52 Pulse: 109 (QS system process) SpO2 (%): 99 (QS system process) Datetime: 09/18/2016 05:47 Pulse: 105 (QS system process) SpO2 (%): 98 (QS system process) Datetime: 09/18/2016 05:43 NBP Sys/Becca/Mean (mmHg): 130 (QS system process) : 65 (QS system process) : 91 (QS system process) Pulse: 110 (QS system process) Datetime: 09/18/2016 05:42 Pulse: 109 (QS system process) SpO2 (%): 99 (QS system process) Datetime: 09/18/2016 05:37 Pulse: 117 (QS system process) SpO2 (%): 99 (QS system process) Datetime: 09/18/2016 05:32 Pulse: 111 (QS system process) SpO2 (%): 100 (QS system process) Datetime: 09/18/2016 05:30 NBP Sys/Becca/Mean (mmHg): 132 (QS system process) : 67 (QS system process) : 91 (QS system process) Pulse: 117 (QS system process) Datetime: 09/18/2016 05:27 Pulse: 122 (QS system process) SpO2 (%): 98 (QS system process) Datetime: 09/18/2016 05:22 Pulse: 113 (QS system process) SpO2 (%): 100 (QS system process) Datetime: 09/18/2016 05:17 Pulse: 125 (QS system process) SpO2 (%): 99 (QS system process) Datetime: 09/18/2016 05:12 Pulse: 126 (QS system process) SpO2 (%): 99 (QS system process) Datetime: 09/18/2016 05:07 Pulse: 112 (QS system process) SpO2 (%): 100 (QS system process) Datetime: 09/18/2016 05:02 Pulse: 130 (QS system process) SpO2 (%): 97 (QS system process) Datetime: 09/18/2016 05:00 Pulse: 124 (QS system process) SpO2 (%): 94 (QS system process) Datetime: 09/18/2016 04:58 NBP Sys/Becca/Mean (mmHg): 110 (QS system process) : 55 (QS system process) : 73 (QS system process) Pulse: 130 (QS system process) Datetime: 09/18/2016 04:57 Pulse: 129 (QS system process) SpO2 (%): 100 (QS system process) Datetime: 09/18/2016 04:53 Pulse: 127 (QS system process) SpO2 (%): 89 (QS system process) Datetime: 09/18/2016 04:52 Pulse: 130 (QS system process) SpO2 (%): 97 (QS system process) Datetime: 09/18/2016 04:47 Pulse: 117 (QS system process) SpO2 (%): 98 (QS system process) Datetime: 09/18/2016 04:43 NBP Sys/Becca/Mean (mmHg): 123 (QS system process) : 60 (QS system process) : 86 (QS system process) Pulse: 126 (QS system process) Datetime: 09/18/2016 04:42 Pulse: 132 (QS system process) SpO2 (%): 98 (QS system process) Datetime: 09/18/2016 04:40 Stage of : Recovery (July Baig RN) Temperature (F): 99.3 (July Baig RN) Temperature (C): 37.4 (QS system process) Temperature Route: Oral (July Baig RN) Pain Scale: 3 (July Baig RN) Pain Presence: Constant (July Baig RN) Pain Type: Cramping (July Baig RN) Pain Location: Abdomen (July Ledgerwood, RN) Datetime: 09/18/2016 03:49 Patient Care Comments: pt out of the room to OR (July Ledgerwood, RN) Datetime: 09/18/2016 03:45 Monitor Mode: External (July Ledgerwood, RN) Frequency (min): 2-2.5 (July Ledgerwood, RN) Quality: Strong (July Ledgerwood, RN) Duration (sec): 50-60 (July Ledgerwood, RN) Duration Criteria: Less than Two 120 Second Contractions (July Ledgerwood, RN) Pattern: Normal: <= 5 Contractions in 10 Minutes (July Ledgerwood, RN) Resting Tone (Palpate): Relaxed (July Ledgerwood, RN) Monitor Mode: External US (July Ledgerwood, RN) FHR Baseline Rate : 155 (July Ledgerwood, RN) FHR Baseline Changes: No Baseline Change (July Ledgerwood, RN) Variability: Moderate 6-25 bpm (July Ledgerwood, RN) Accelerations: None (July Ledgerwood, RN) Decelerations: Early (July Ledgerwood, RN) Datetime: 09/18/2016 03:35 NBP Sys/Becca/Mean (mmHg): 134 (QS system process) : 71 (QS system process) : 93 (QS system process) Pulse: 134 (QS system process) LaborFlag: Antepartum (QS system process) Datetime: 09/18/2016 03:30 Monitor Mode: External (July Baig, RN) Frequency (min): 2-2.5 (July Baig, RN) Quality: Moderate to Strong (July Ledgerwood, RN) Duration (sec): 50-60 (July Lalagerwood, RN) Duration Criteria: Less than Two 120 Second Contractions (July Reevesgerophelia, RN) Pattern: Normal: <= 5 Contractions in 10 Minutes (July Lalagerwood, RN) Resting Tone (Palpate): Relaxed (July Baig, RN) Monitor Mode: External US (July Baig, RN) FHR Baseline Rate : 150 (July Baig, RN) FHR Baseline Changes: No Baseline Change (July Ledgerwood, RN) Variability: Moderate 6-25 bpm (July Ledgerwood, RN) Accelerations: 10X10 (July Ledgerwood, RN) Decelerations: Early (July Ledgerwood, RN) Datetime: 09/18/2016 03:20 NBP Sys/Becca/Mean (mmHg): 150 (QS system process) : 66 (QS system process) : 96 (QS system process) Pulse: 142 (QS system process) LaborFlag: Antepartum (QS system process) Datetime: 09/18/2016 03:19 NBP Sys/Becca/Mean (mmHg): 137 (QS system process) : 77 (QS system process) : 101 (QS system process) Pulse: 141 (QS system process) LaborFlag: Antepartum (QS system process) Datetime: 09/18/2016 03:17 Communication: Provider at Bedside (July Ledgerwood, RN) Communication Comments: Dr Schmitt calls . (July Ledgerwood, RN) Datetime: 09/18/2016 03:15 Monitor Mode: External (July Ledgerwood, RN) Frequency (min): 2-2.5 (July Ledgerwood, RN) Quality: Moderate to Strong (July Ledgerwood, RN) Duration (sec): 50-60 (July Ledgerwood, RN) Duration Criteria: Less than Two 120 Second Contractions (July Ledgerwood, RN) Pattern: Normal: <= 5 Contractions in 10 Minutes (July Ledgerwood, RN) Resting Tone (Palpate): Relaxed (July Ledgerwood, RN) Monitor Mode: External US (July Ledgerwood, RN) FHR Baseline Rate : 160 (July Ledgerwood, RN) FHR Baseline Changes: No Baseline Change (July Ledgerwood, RN) Variability: Moderate 6-25 bpm (July Ledgerwood, RN) Accelerations: None (July Ledgerwood, RN) Decelerations: Late; Variable (July Ledgerwood, RN) Datetime: 09/18/2016 03:12 Communication: Provider at Bedside (July Baig RN) Communication Comments: Dr Schmitt at bedside. (July Baig RN) Datetime: 09/18/2016 03:04 NBP Sys/Becca/Mean (mmHg): 130 (QS system process) : 66 (QS system process) : 91 (QS system process) Pulse: 148 (QS system process) LaborFlag: Antepartum (QS system process) Datetime: 09/18/2016 03:00 Monitor Mode: External (July Baig RN) Frequency (min): 1.5-2 (July Baig RN) Quality: Moderate to Strong (July Ledgerwood, RN) Duration (sec): 50-60 (July Ledgerwood, RN) Duration Criteria: Less than Two 120 Second Contractions (July Ledgerwood, RN) Pattern: Normal: <= 5 Contractions in 10 Minutes (July Ledgerwood, RN) Resting Tone (Palpate): Relaxed (July Ledgerwood, RN) Monitor Mode: External US (July Ledgerwood, RN) FHR Baseline Rate : 160 (July Ledgerwood, RN) FHR Baseline Changes: No Baseline Change (July Ledgerwood, RN) Variability: Moderate 6-25 bpm (July Ledgerwood, RN) Accelerations: 15X15 (July Ledgerwood, RN) Decelerations: Variable (July Ledgerwood, RN) Datetime: 09/18/2016 02:49 NBP Sys/Becca/Mean (mmHg): 136 (QS system process) : 73 (QS system process) : 98 (QS system process) Pulse: 146 (QS system process) LaborFlag: Antepartum (QS system process) Datetime: 09/18/2016 02:45 Monitor Mode: External (July Ledgerwood, RN) Frequency (min): 1.5-2 (July Ledgerwood, RN) Quality: Strong (July Ledgerwood, RN) Duration (sec): 50-60 (July Ledgerwood, RN) Duration Criteria: Less than Two 120 Second Contractions (July Ledgerwood, RN) Pattern: Normal: <= 5 Contractions in 10 Minutes (July Ledgerwood, RN) Resting Tone (Palpate): Relaxed (July Ledgerwood, RN) Monitor Mode: External US (July Ledgerwood, RN) FHR Baseline Rate : 160 (July Ledgerwood, RN) FHR Baseline Changes: No Baseline Change (July Ledgerwood, RN) Variability: Moderate 6-25 bpm (July Ledgerwood, RN) Accelerations: 15X15 (July Ledgerwood, RN) Decelerations: Early (July Ledgerwood, RN) Datetime: 09/18/2016 02:34 NBP Sys/Becca/Mean (mmHg): 145 (QS system process) : 71 (QS system process) : 99 (QS system process) Pulse: 144 (QS system process) LaborFlag: Antepartum (QS system process) Datetime: 09/18/2016 02:30 Monitor Mode: External (July Ledgerwood, RN) Frequency (min): 1.5-2.5 (July Ledgerwood, RN) Quality: Strong (July Ledgerwood, RN) Duration (sec): 50-60 (July Ledgerwood, RN) Duration Criteria: Less than Two 120 Second Contractions (July Ledgerwood, RN) Pattern: Normal: <= 5 Contractions in 10 Minutes (July Ledgerwood, RN) Resting Tone (Palpate): Relaxed (July Ledgerwood, RN) Monitor Mode: External US (July Ledgerwood, RN) FHR Baseline Rate : 160 (July Ledgerwood, RN) FHR Baseline Changes: No Baseline Change (July Ledgerwood, RN) Variability: Moderate 6-25 bpm (July Ledgerwood, RN) Accelerations: 15X15 (Ujly Ledgerwood, RN) Decelerations: Variable (July Ledgerwood, RN) Datetime: 09/18/2016 02:19 NBP Sys/Becca/Mean (mmHg): 134 (QS system process) : 71 (QS system process) : 95 (QS system process) Pulse: 127 (QS system process) LaborFlag: Antepartum (QS system process) Datetime: 09/18/2016 02:15 Monitor Mode: External (Angeles Pruitt, RN) Frequency (min): 1.5-2 (Angeles Pruitt, RN) Duration (sec): 60-130 (Angeles Pruitt, RN) Pattern: Normal: <= 5 Contractions in 10 Minutes (Angeles Pruitt, RN) Monitor Mode: External US (Angeles Pruitt, RN) FHR Baseline Rate : 160 (Angeles Pruitt, RN) Variability: Moderate 6-25 bpm (Angeles Pruitt, RN) Accelerations: 15X15 (Angeles Puritt, RN) Decelerations: Late; Variable (Angeles Pruitt, RN) Datetime: 09/18/2016 02:05 NBP Sys/Becca/Mean (mmHg): 134 (QS system process) : 86 (QS system process) : 104 (QS system process) Pulse: 125 (QS system process) LaborFlag: Antepartum (QS system process) Datetime: 09/18/2016 01:59 Monitor Mode: External (Angeles Pruitt, RN) Frequency (min): 2-2.5 (Angeles Pruitt, RN) Duration (sec): 60-90 (Angeles Pruitt, RN) Pattern: Normal: <= 5 Contractions in 10 Minutes (Angeles Pruitt, RN) Monitor Mode: External US (Angeles Pruitt, RN) FHR Baseline Rate : 160 (Angeles Pruitt, RN) Variability: Moderate 6-25 bpm (Angeles Pruitt, RN) Accelerations: 15X15 (Angeles Pruitt, RN) Decelerations: Variable (Angeles Pruitt, RN) Datetime: 09/18/2016 01:49 NBP Sys/Becca/Mean (mmHg): 140 (QS system process) : 74 (QS system process) : 99 (QS system process) Pulse: 117 (QS system process) LaborFlag: Antepartum (QS system process) Datetime: 09/18/2016 01:45 Monitor Mode: External (Angeles Pruitt, RN) Frequency (min): 1-2.5 (Angeles Pruitt, RN) Duration (sec): 60-100 (Angeles Pruitt, RN) Pattern: Normal: <= 5 Contractions in 10 Minutes (Angeles Pruitt, RN) Monitor Mode: External US (Angeles Pruitt, RN) FHR Baseline Rate : 160 (Angeles Pruitt, RN) Variability: Moderate 6-25 bpm (Angeles Pruitt, RN) Accelerations: 15X15 (Angeles Pruitt, RN) Decelerations: Variable (Angeles Pruitt, RN) Pushing Position: Pushing with Contractions (July Ledgerwood, RN) Pushing Progress: Pushing Effectively with Contractions (July Ledgerwood, RN) Datetime: 09/18/2016 01:34 NBP Sys/Becca/Mean (mmHg): 136 (QS system process) : 79 (QS system process) : 100 (QS system process) Pulse: 122 (QS system process) LaborFlag: Antepartum (QS system process) Datetime: 09/18/2016 01:33 Pushing: Coached on Pushing; Urge to Push (July Ledgerwood, RN) Pushing Position: Pushing with Contractions (July Ledgerwood, RN) Datetime: 09/18/2016 01:30 Monitor Mode: External (Angeles Pruitt, RN) Frequency (min): 2.5-3 (Angeles Pruitt, RN) Duration (sec): 70-110 (Angeles Pruitt, RN) Pattern: Normal: <= 5 Contractions in 10 Minutes (Angeles Pruitt, RN) Monitor Mode: External US (Angeles Pruitt, RN) FHR Baseline Rate : 160 (Angeles Pruitt, RN) Variability: Moderate 6-25 bpm (Angeles Pruitt, RN) Accelerations: 15X15 (Angeles Pruitt, RN) Decelerations: None (Angeles Pruitt, RN) Datetime: 09/18/2016 01:25 Dilatation (cm): 10.0 (July Ledgerwood, RN) Effacement (%): 100 (July Ledgerwood, RN) Station: 1 (July Ledgerwood, RN) Exam by: O Safia RN (July Ledgerwood, RN) Datetime: 09/18/2016 01:20 NBP Sys/Becca/Mean (mmHg): 139 (QS system process) : 80 (QS system process) : 103 (QS system process) Pulse: 127 (QS system process) LaborFlag: Antepartum (QS system process) Datetime: 09/18/2016 01:15 Monitor Mode: External (Angeles Pruitt, RN) Frequency (min): 1.5-2 (Angeles Pruitt, RN) Duration (sec): 60-110 (Angeles Pruitt, RN) Pattern: Normal: <= 5 Contractions in 10 Minutes (Angeles Pruitt, RN) Monitor Mode: External US (Angeles Pruitt, RN) FHR Baseline Rate : 160 (Angeles Pruitt, RN) Variability: Moderate 6-25 bpm (Angeles Pruitt, RN) Accelerations: 10X10 (Angeles Pruitt, RN) Decelerations: None (Angeles Pruitt, RN) Datetime: 09/18/2016 01:04 NBP Sys/Becca/Mean (mmHg): 136 (QS system process) : 89 (QS system process) : 107 (QS system process) Pulse: 117 (QS system process) LaborFlag: Antepartum (QS system process) Datetime: 09/18/2016 01:00 Monitor Mode: External (Angeles Pruitt, RN) Frequency (min): 2-3 (Angeles Pruitt, RN) Duration (sec): 60-80 (Angeles Pruitt, RN) Pattern: Normal: <= 5 Contractions in 10 Minutes (Angeles Pruitt, RN) Monitor Mode: External US (Angeles Pruitt, RN) FHR Baseline Rate : 160 (Angeles Pruitt, RN) Variability: Moderate 6-25 bpm (Angeles Pruitt, RN) Accelerations: 10X10 (Angeles Pruitt, RN) Decelerations: Early (Angeles Pruitt, RN) Datetime: 09/18/2016 00:49 NBP Sys/Becca/Mean (mmHg): 136 (QS system process) : 91 (QS system process) : 107 (QS system process) Pulse: 108 (QS system process) LaborFlag: Antepartum (QS system process) Datetime: 09/18/2016 00:45 Monitor Mode: External (Angeles Pruitt, RN) Frequency (min): 2-3 (Angeles Pruitt, RN) Duration (sec): 70-90 (Angeles Pruitt, RN) Pattern: Normal: <= 5 Contractions in 10 Minutes (Angeles Pruitt, RN) Resting Tone (Palpate): Relaxed (Angeles Pruitt, RN) Monitor Mode: External US (Angeles Pruitt, RN) FHR Baseline Rate : 160 (Angeles Pruitt, RN) Variability: Moderate 6-25 bpm (Angeles Pruitt, RN) Accelerations: 15X15 (Angeles Pruitt, RN) Decelerations: None (Angeles Pruitt, RN) Datetime: 09/18/2016 00:34 NBP Sys/Becca/Mean (mmHg): 132 (QS system process) : 82 (QS system process) : 101 (QS system process) Pulse: 110 (QS system process) LaborFlag: Antepartum (QS system process) Datetime: 09/18/2016 00:30 Monitor Mode: External (July Baig, RN) Frequency (min): 2-3 (July Ledgerwood, RN) Quality: Moderate to Strong (July Ledgerwood, RN) Duration (sec): 60-70 (July Ledgerwood, RN) Duration Criteria: Less than Two 120 Second Contractions (July Ledgerwood, RN) Pattern: Normal: <= 5 Contractions in 10 Minutes (July Ledgerwood, RN) Resting Tone (Palpate): Relaxed (July Ledgerwood, RN) Monitor Mode: External US (July Baig, RN) FHR Baseline Rate : 155 (July Baig, RN) FHR Baseline Changes: No Baseline Change (July Lalagerwood, RN) Variability: Moderate 6-25 bpm (July Ledgerwood, RN) Accelerations: None (July Ledgerwood, RN) Decelerations: Early (July Ledgerwood, RN) Datetime: 09/18/2016 00:19 NBP Sys/Becca/Mean (mmHg): 146 (QS system process) : 84 (QS system process) : 108 (QS system process) Pulse: 107 (QS system process) LaborFlag: Antepartum (QS system process) Datetime: 09/18/2016 00:04 NBP Sys/Becca/Mean (mmHg): 123 (QS system process) : 73 (QS system process) : 94 (QS system process) Pulse: 115 (QS system process) LaborFlag: Antepartum (QS system process) Datetime: 09/18/2016 00:00 Monitor Mode: External (July Ledgerwood, RN) Frequency (min): 1.5-3 (July Ledgerwood, RN) Quality: Moderate to Strong (July Ledgerwood, RN) Duration (sec): 50-70 (July Ledgerwood, RN) Duration Criteria: Less than Two 120 Second Contractions (July Ledgerwood, RN) Pattern: Normal: <= 5 Contractions in 10 Minutes (July Ledgerwood, RN) Resting Tone (Palpate): Relaxed (July Ledgerwood, RN) Monitor Mode: External US (July Ledgerwood, RN) FHR Baseline Rate : 155 (July Ledgerwood, RN) FHR Baseline Changes: No Baseline Change (July Ledgerwood, RN) Variability: Moderate 6-25 bpm (July Ledgerwood, RN) Accelerations: None (July Ledgerwood, RN) Decelerations: Variable (July Ledgerwood, RN) Datetime: 09/17/2016 23:49 NBP Sys/Becca/Mean (mmHg): 138 (QS system process) : 84 (QS system process) : 105 (QS system process) Pulse: 106 (QS system process) LaborFlag: Antepartum (QS system process) Datetime: 09/17/2016 23:33 NBP Sys/Becca/Mean (mmHg): 135 (QS system process) : 68 (QS system process) : 96 (QS system process) Pulse: 109 (QS system process) LaborFlag: Antepartum (QS system process) Datetime: 09/17/2016 23:32 NBP Sys/Becca/Mean (mmHg): 139 (QS system process) : 67 (QS system process) : 95 (QS system process) Pulse: 105 (QS system process) LaborFlag: Antepartum (QS system process) Datetime: 09/17/2016 23:31 NBP Sys/Becca/Mean (mmHg): 133 (QS system process) : 79 (QS system process) : 99 (QS system process) Pulse: 110 (QS system process) LaborFlag: Antepartum (QS system process) Datetime: 09/17/2016 23:30 NBP Sys/Becca/Mean (mmHg): 136 (QS system process) : 75 (QS system process) : 99 (QS system process) Pulse: 110 (QS system process) Monitor Mode: External; Palpation (July Baig RN) Frequency (min): 2-2.5 (July Baig RN) Quality: Strong (July Baig, SURI) Duration (sec): 80-90 (July Baig, SURI) Duration Criteria: Less than Two 120 Second Contractions (July Baig RN) Pattern: Normal: <= 5 Contractions in 10 Minutes (July Baig, SURI) Resting Tone (Palpate): Relaxed (July Baig, SURI) Monitor Mode: External US (July Baig RN) FHR Baseline Rate : 150 (July Baig RN) FHR Baseline Changes: No Baseline Change (July Baig, RN) Variability: Moderate 6-25 bpm (July Baig, RN) Accelerations: 15X15 (July Baig, RN) Decelerations: Variable (July Baig RN) I/O Interventions: [place] Cath Inserted (July Baig RN) Patient Care Comments: 14 F by Lenard Baig RN (July Baig RN) LaborFlag: Antepartum (QS system process) Datetime: 09/17/2016 23:29 NBP Sys/Becca/Mean (mmHg): 133 (QS system process) : 85 (QS system process) : 103 (QS system process) Pulse: 118 (QS system process) Dilatation (cm): 9.5 (July Baig RN) Station: 0 (July Baig RN) Exam by: Lenard Baig RN (July Baig RN) LaborFlag: Antepartum (QS system process) Datetime: 09/17/2016 23:28 NBP Sys/Becca/Mean (mmHg): 136 (QS system process) : 87 (QS system process) : 106 (QS system process) Pulse: 115 (QS system process) LaborFlag: Antepartum (QS system process) Datetime: 09/17/2016 23:27 NBP Sys/Becca/Mean (mmHg): 131 (QS system process) : 75 (QS system process) : 96 (QS system process) Pulse: 126 (QS system process) LaborFlag: Antepartum (QS system process) Datetime: 09/17/2016 23:26 NBP Sys/Becca/Mean (mmHg): 137 (QS system process) : 80 (QS system process) : 103 (QS system process) Pulse: 110 (QS system process) LaborFlag: Antepartum (QS system process) Datetime: 09/17/2016 23:25 NBP Sys/Becca/Mean (mmHg): 138 (QS system process) : 94 (QS system process) : 108 (QS system process) Pulse: 126 (QS system process) Pulse: 127 (QS system process) SpO2 (%): 100 (QS system process) LaborFlag: Antepartum (QS system process) Datetime: 09/17/2016 23:21 NBP Sys/Becca/Mean (mmHg): 165 (QS system process) : 100 (QS system process) : 124 (QS system process) Pulse: 122 (QS system process) LaborFlag: Antepartum (QS system process) Datetime: 09/17/2016 23:20 NBP Sys/Becca/Mean (mmHg): 165 (QS system process) : 94 (QS system process) : 122 (QS system process) Pulse: 127 (QS system process) Pulse: 125 (QS system process) SpO2 (%): 99 (QS system process) LaborFlag: Antepartum (QS system process) Datetime: 09/17/2016 23:19 Anesthesia Plans: Epidural (July Reevesgerwood, RN) Epidural Positioning: Sitting (July Reevesgerwood, RN) Epidural Procedure: Test Dose (July Lalagerwood, RN) Datetime: 09/17/2016 23:16 Procedure Verify: Correct Patient Identity; Correct Side and Site are Marked; Agreement on Procedure to be Done; Correct Patient Position (July Reevesgerwood, RN) Anesthesia Plans: Epidural (July Reevesgerwood, RN) Epidural Positioning: Sitting (July Reevesgerwood, RN) Datetime: 09/17/2016 23:15 Communication: Provider at Bedside (July Sabillonwood, RN) Communication Comments: Dr Patton at bedside. (July Lalagerwood, RN) Datetime: 09/17/2016 23:10 Procedure Verify: Correct Patient Identity; Correct Side and Site are Marked; Agreement on Procedure to be Done; Correct Patient Position (July Ledgerwood, RN) Anesthesia Plans: Epidural (July Ledgerwood, RN) Datetime: 09/17/2016 23:00 Monitor Mode: External (July Ledgerwood, RN) Frequency (min): 2.5-4.5 (July Ledgerwood, RN) Quality: Moderate to Strong (July Ledgerwood, RN) Duration (sec): 70-90 (July Ledgerwood, RN) Duration Criteria: Less than Two 120 Second Contractions (July Ledgerwood, RN) Pattern: Normal: <= 5 Contractions in 10 Minutes (July Ledgerwood, RN) Resting Tone (Palpate): Relaxed (July Ledgerwood, RN) Monitor Mode: External US (July Ledgerwood, RN) FHR Baseline Rate : 160 (July Ledgerwood, RN) FHR Baseline Changes: No Baseline Change (July Ledgerwood, RN) Variability: Moderate 6-25 bpm (July Ledgerwood, RN) Accelerations: 10X10 (July Ledgerwood, RN) Decelerations: None (July Ledgerwood, RN) Datetime: 09/17/2016 22:59 Procedure Verify: Correct Patient Identity; Correct Side and Site are Marked; Accurate Procedure Consent Form; Agreement on Procedure to be Done; Correct Patient Position; Relevant Images and Results are Properly Labeled and Displayed; Addressed Need to Administer Antibiotics or Fluids for Irrigation; Safety Precautions Based on Patient History or Medication Use (Shannan Luis RN) Anesthesia Comments: Dr Patton notified of pt wanting epidural. (Shannan Luis RN) Datetime: 09/17/2016 22:30 Monitor Mode: External (July Baig, RN) Frequency (min): 2.5-3.5 (July Baig, RN) Quality: Moderate to Strong (July Baig, RN) Duration (sec): 60-80 (July Baig, RN) Duration Criteria: Less than Two 120 Second Contractions (July Baig, RN) Pattern: Normal: <= 5 Contractions in 10 Minutes (July Baig, RN) Resting Tone (Palpate): Relaxed (July Baig, RN) Monitor Mode: External US (July Baig, RN) FHR Baseline Rate : 160 (July Ledgerwood, RN) FHR Baseline Changes: No Baseline Change (July Ledgerwood, RN) Variability: Moderate 6-25 bpm (July Ledgerwood, RN) Accelerations: 15X15 (July Ledgerwood, RN) Decelerations: None (July Ledgerwood, RN) Datetime: 09/17/2016 22:28 Procedures: Consents Signed (Shannan Toby, RN) Datetime: 09/17/2016 22:21 NBP Sys/Becca/Mean (mmHg): 143 (QS system process) : 87 (QS system process) : 110 (QS system process) Pulse: 106 (QS system process) LaborFlag: Antepartum (QS system process) Datetime: 09/17/2016 22:15 IV/Blood Work: Labs Drawn (Shannan Toby, RN) Datetime: 09/17/2016 22:04 Vaginal Bleeding: None (Shannan Toby, RN) Breath Sounds, Left: Clear and Equal (Shannan Toby, RN) Breath Sounds, Right: Clear and Equal (Shannan Toby, RN) Nausea/Vomiting: Present (Annotations: nausea) (Shannan Toby, RN) Datetime: 09/17/2016 22:00 Monitor Mode: External; Palpation (July Ledgerwood, RN) Frequency (min): 3-7 (July Ledgerwood, RN) Quality: Moderate to Strong (July Ledgerwood, RN) Duration (sec): 60-70 (July Ledgerwood, RN) Duration Criteria: Less than Two 120 Second Contractions (July Ledgerwood, RN) Pattern: Normal: <= 5 Contractions in 10 Minutes (July Reevesgerwood, RN) Resting Tone (Palpate): Relaxed (July Reevesgerwood, RN) Monitor Mode: External US (July Baig, RN) FHR Baseline Rate : 160 (July Lalagerwood, RN) FHR Baseline Changes: No Baseline Change (July Ledgerwood, RN) Variability: Moderate 6-25 bpm (July Ledgerwood, RN) Accelerations: 10X10 (July Lalagerwood, RN) Decelerations: Variable (July Reevesgerophelia, RN) IV/Blood Work: IV Started; IV Bolus Started (Shannan Luis, RN) Datetime: 09/17/2016 21:50 Dilatation (cm): 9.0 (Shannan Luis, RN) Station: 0 (Shannan Luis, RN) Exam by: JERRY Connelly (Shannan Luis, RN) Datetime: 09/17/2016 21:45 Temperature (F): 98.3 (July Baig, RN) Temperature (C): 36.8 (QS system process) Temperature Route: Oral (July Baig RN) Membranes Ruptured Date/Time: 09/17/2016 21:45 (Shannan Luis RN) Membranes Rupture Method: Spontaneous (Shannan Luis RN) Amniotic Fluid Color: Clear (Shannan Luis RN) Amniotic Fluid Amount: Moderate (Shannan Luis RN) Amniotic Fluid Odor: Normal (Shannan Luis RN) LaborFlag: Antepartum (QS system process)
[2016-09-18] MEDS: KETOROLAC TROMETHAMINE INJ/PF 30 MG/1 ML SDV IV SCH ×3 (07:12→22:09)
--- NOTE | 2016-09-18 07:12 | Delivery Summary ---
Del Sum A-C Datetime Report Generated by CPN: 09/18/2016 07:12 ADMISSION DATA Chief Complaint: Uterine Contractions Indication for Induction: Not Applicable Admission Impression: Active Labor Admit Provider Comments: efw is 7-8 lbs DELIVERY PERSONNEL Delivery Doctor:: Melvin Schmitt MD Labor and Delivery Nurse:: July Baig RN Director Of Rooms/STORE PERSON: ST Yolanda Director Of Rooms/STORE PERSON: ST Jumana Additional Personnel: : Gustavo Ertel, STORE PERSON MATERNAL INFORMATION Delivery Anesthesia: Epidural Medications After Delivery: Pitocin Bolus-Please Comment; Pitocin Drip 20 Units/1000ml NSS; Other-Please Comment Meds After Delivery Comment: Cytotec 1000 mcg rectum Estimated Blood Loss (ml): 700 Maternal Complications: Other Other Maternal Complications: CPD LABOR SUMMARY EDC: 09/23/2016 00:00 No. Babies in Womb: 1 Attempted: No Labor Anesthesia: Epidural LABOR INFORMATION Reason for Induction: Not Applicable Onset of Labor: 09/17/2016 21:50 Complete Dilatation: 09/18/2016 01:25 Oxytocin: N/A Group B Beta Strep: negative Antibiotics # of Doses: n/a Antibiotics Time of Last Dose: n/a Name of Antibiotic Given: n/a Steroids Given: None Reason Steroids Not Administered: Not Applicable MEMBRANES Membranes Rupture Method: Spontaneous Rupture of Membranes: 09/17/2016 21:45 Length of Rupture (hr): 6.40 Amniotic Fluid Color: Clear Amniotic Fluid Amount: Moderate Amniotic Fluid Odor: Normal STAGES OF LABOR Stage 1 hr: 3 Stage 1 min: 35 Stage 2 hr: 2 Stage 2 min: 44 Stage 3 hr: 0 Stage 3 min: 1 Total Time in Labor hr: 6 Total Time in Labor min: 20 CSECTION DELIVERY Primary Indication: Other Other Primary Indication: CPD CSection Incision: Lower Uterine Transverse BABY A INFORMATION Delivery Date/Time: 09/18/2016 04:09 Method of Delivery: Born in Route : No : N/A Forceps: N/A Vacuum Extraction: N/A Shoulder Dystocia : No PRESENTATION/POSITION BABY A Presentation: Cephalic Breech Presentation: N/A PLACENTA INFORMATION BABY A Placenta Delivery Time : 09/18/2016 04:10 Placenta Method of Delivery: Manual Removal Placenta Status: Delivered SCORES BABY A Heart Rate 1 min: >100 bpm Resp Effort 1 min: Good Cry Reflex Irritability 1 min: Grimace Muscle Tone 1 min: Some Flexion of Extremities Color 1 min: Blue/Pale Resuscitation Effort 1 min: Oxygen; PPV/NCPAP SCORE 1 MIN: 6 Heart Rate 5 min: >100 bpm Resp Effort 5 min: Good Cry Reflex Irritability 5 min: Cough or Sneeze or Pulls Away Muscle Tone 5 min: Some Flexion of Extremities Color 5 min: Body [place], Extremities Blue SCORE 5 MIN: 8 INFANT INFORMATION BABY A Gestational Age at Delivery: 39.2 Gestational Status: Full Term- 39- 40.6 Weeks Outcome : Liveborn Condition : Stable Sex: Male IDENTIFICATION BABY A Verification Date/Time: 09/18/2016 04:21 ID Band Number: [id number] Mother's Name Verified: Yes RN Verifying Infant: SYonatan Diehl, RN Additional Verifying Personnel: RYonatan Schumacher, STORE PERSON WEIGHT/LENGTH BABY A Birthweight (gm): 4069 Weight (lb): 9 Weight (oz): 0 Infant Length (in): 20.00 Length (cm): 50.80 CORD INFORMATION BABY A No. Cord Vessels: 3 Nuchal Cord : N/A Cord Blood Taken: Yes-For Eval (Mom's Blood Type - or O+) ASSESSMENT BABY A Skin to Skin: Yes Skin to Skin Time (min): 5
[2016-09-18] MEDS: PRENATAL VITAMIN W-O CA NO5/FE FUMARATE/FA CAPSULE PO SCH (10:15)
[2016-09-18] MEDS: OXYCODONE-ACETAMINOPHEN 5-325 MG TABLET PO PRN ×2 (10:15→18:20)
[2016-09-18] MEDS: DOCUSATE SODIUM 100 MG CAPSULE PO SCH ×2 (10:15→18:23)
[2016-09-18] MEDS: CEFTRIAXONE 1 GM/D5W RTU 1 GM/50 ML RTUPB IV SCH (15:34)
--- NOTE | 2016-09-18 18:01 | L&D General Admission ---
General Admit Datetime Report Generated by CPN: 09/18/2016 18:00 INFORMATION Patient Age: 21 (09/03/2016 11:54:QS system process) EDC: 09/23/2016 00:00 (09/03/2016 12:35:Lauren Rogers RN) : 1 (09/03/2016 12:35:Lauren Rogers RN) Para: 0 (09/03/2016 12:35:Nevaeh Owens RN) Term: 0 (09/03/2016 12:35:Lauren Rogers RN) : 0 (09/03/2016 12:35:Lauren Rogers RN) Spontaneous Abortions: 0 (09/03/2016 12:35:Lauren Rogers RN) Induced Abortions: 0 (09/03/2016 12:35:Lauren Rogers RN) Livin (09/03/2016 12:35:Lauren Rogers RN) Cesareans: 0 (09/03/2016 12:35:Mare Diehl RN) VBACs: 0 (09/03/2016 12:35:Mare iDehl RN) Ectopic: 0 (09/03/2016 12:35:Mare Diehl RN) Multiple Births: 0 (09/03/2016 12:35:Mare Diehl RN) Baby, Number in Womb: 1 (09/03/2016 12:35:Nevaeh Owens RN) CARE Primary Cloth Winding Supervisor: [facility] (09/03/2016 12:35:Lauren Rogers RN) Cloth Winding Supervisor Other: [facility] (09/03/2016 12:35:Lauren Rogers RN) Adequate Care: Yes (09/03/2016 12:35:July Baig RN) Prepregnancy Weight (lb): 124 (09/03/2016 12:35:Lauren Rogers RN) Prepregnancy Weight (kg): 56.4 (09/03/2016 12:35:QS system process) Height (in): 66 (09/18/2016 06:47:QS system process) ALLERGIES Medication Allergy: No (09/03/2016 12:35:Lauren Rogers RN) Medication Allergies: No Known Allergies (09/18/2016) (09/18/2016 01:38:QS system process) Latex Allergy: No Latex Allergies (09/03/2016 12:35:Lauren Rogers RN) Food Allergies: none (09/03/2016 12:35:Angeles Pruitt RN) Environmental Allergies: none (09/03/2016 12:35:Angeles Pruitt RN) COMMUNICATION Primary Language: Venezuelan (09/03/2016 12:35:Lauren Roegrs RN) Medical Tx Preferred Language: Venezuelan (09/03/2016 12:35:Lauren Rogers RN) DEMOGRAPHICS Address: [address] [place] [address] [place] [address] (09/03/2016 11:54:QS system process) Zipcode: [address] (09/03/2016 11:54:QS system process) Home (09/16/2016 21:35:QS system process) SSN: [id number] (09/03/2016 11:54:QS system process) Next of Kin Name: FARZAD LASSARD (09/03/2016 11:54:QS system process) Next of Kin (09/03/2016 11:54:QS system process) Next of Kin Relationship: OR (09/03/2016 11:54:QS system process) Date of : 1995 (09/03/2016 11:54:QS system process) Marital Status: Single (09/03/2016 11:54:QS system process) Sex: Female (09/03/2016 11:54:QS system process) Race: (09/03/2016 11:54:QS system process) Ethnicity: Non- or (09/03/2016 11:54:QS system process) Scientologist: None (09/03/2016 11:54:QS system process) DRUG AND ALCOHOL USE Alcohol: No (09/03/2016 12:35:Lauren Rogers RN) Cigarettes: Never Smoker. [id number] (09/03/2016 12:35:Lauren Rogers RN) Marijuana: No (09/03/2016 12:35:Lauren Rogers RN) Cocaine: No (09/03/2016 12:35:Lauren Rogers RN) Other Illicit Drugs: No (09/03/2016 12:35:Lauren Rogers RN) VACCINE HISTORY Influenza Vaccine: Yes (09/03/2016 12:35:Lauren Rogers RN) Influenza Date: 03/2016 (09/03/2016 12:35:Lauren Rogers RN) Pneumococcal Vaccine: No (09/03/2016 12:35:Lauren Rogers RN) Tetanus Vaccine: No (09/03/2016 12:35:Lauren oRgers RN) Tdap Vaccine: No (09/03/2016 12:35:Lauren Rogers RN) Hepatitis B Vaccine: No (09/03/2016 12:35:Lauren Rogers RN) Lmft: [facility] (09/03/2016 12:35:Lauren Rogers RN) Feeding Preference: Breast (09/03/2016 12:35:Lauren Rogers RN) Benefit of Breast Feed Discussed: Yes (09/03/2016 12:35:Lauren Rogers RN) Circumcision: Yes (09/03/2016 12:35:Lauren Rogers RN) Classes Attended: No (09/03/2016 12:35:Lauren Rogers RN) Tubal Ligation: No (09/03/2016 12:35:Lauren Rogers RN) Tubal Authorization Signed: N/A (09/03/2016 12:35:Lauren Rogers RN) Consent: N/A (09/03/2016 12:35:Lauren Rogers RN) Consent Signed: N/A (09/03/2016 12:35:Lauren Rogers RN) Pain Management Plans: Epidural (09/03/2016 12:35:Lauren Rogers RN) Plans for Labor and Delivery: None (09/03/2016 12:35:Lauren Rogers RN) Support Person: Farzad Ho (09/03/2016 12:35:Lauren Rogers RN) Support Person Relationship: Significant Other (09/03/2016 12:35:Lauren Rogers RN) Cultural/Spritual Practice: No (09/03/2016 12:35:Lauren Rogers RN) Spir/Cult Dietary Needs: No (09/03/2016 12:35:Lauren Rogers RN) LIVING SITUATION/DISCHARGE PLAN Living Arrangements: House (09/03/2016 12:35:Lauren Rogers RN) Adequate Access to:: Electric; Heat; Refrigeration; Plumbing/Running water; Phone; Transportation (09/03/2016 12:35:Lauren Rogers RN) WIC Program: Yes (09/03/2016 12:35:Lauren Rogers RN) Discharge Punch Box Tender Person: Sig other (09/03/2016 12:35:Lauren Rogers RN) Person to Help after Discharge: Sig other (09/03/2016 12:35:Lauren Rogers, RN) Currently Using Commun Resources: Yes (09/03/2016 12:35:Lauren Rogers RN) Specify Current Resource Used: food stamps (09/03/2016 12:35:Lauren Rogers RN) Outside Agency/Electric Screw Driver Operator: No (09/03/2016 12:35:Lauren Rogers RN) Car Seat for Discharge: Yes (09/03/2016 12:35:Lauern Rogers RN) Adoption Requested: No (09/03/2016 12:35:Lauren Rogers RN) Pt Contact w/ Post : N/A (09/03/2016 12:35:Lauren Rogers RN) LABS Blood Type: A Positive (09/03/2016 12:35:Lauren Rogers RN) Antibody Screen: negative (09/03/2016 12:35:Lauren Rogers RN) Hemoglobin: 10.2 L (09/17/2016 22:07:QS system process) Hematocrit: 31.7 L (09/17/2016 22:07:QS system process) MCV: 76 L (09/17/2016 22:07:QS system process) Group Beta Strep: negative (09/03/2016 12:35:Lauren Rogers RN) Gonorrhea: Negative (09/03/2016 12:35:Lauren Rogers RN) Chlamydia: Negative (09/03/2016 12:35:Lauren Rogers RN) RPR/VDRL: Nonreactive (09/03/2016 12:35:Lauren Rogers RN) Rubella: Immune (09/03/2016 12:35:Lauren Rogers RN) Varicella: Non Susceptible (09/03/2016 12:35:Lauren Rogers RN) OB/PREVIOUS HISTORY Current Procedures: Ultrasound (09/03/2016 12:35:Lauren Rogers RN) History of Previous : No (09/03/2016 12:35:Lauren Rogers RN) History of Gestational Diabetes: No (09/03/2016 12:35:Lauren Rogers RN) History of PIH: No (09/03/2016 12:35:Lauren Rogers RN) History of Incompetent Cervix: No (09/03/2016 12:35:Lauren Rogers RN) History of Placenta Previa/Abrup: No (09/03/2016 12:35:Lauren Rogers RN) History of Macrosomia: No (09/03/2016 12:35:Lauren Rogers RN) History of IUGR: No (09/03/2016 12:35:Lauren Rogers RN) History of Hemorrhage: No (09/03/2016 12:35:Lauren Rogers RN) History of Loss/Stillborn: No (09/03/2016 12:35:Lauren Rogers RN) History of : No (09/03/2016 12:35:Lauren Rogers RN) History of D (Rh) Sensitization: No (09/03/2016 12:35:Lauren Rogers RN) History Recurrent Loss/Stillborn: No (09/03/2016 12:35:Lauren Rogers RN) History Depression/PP Depression: No (09/03/2016 12:35:Angeles Pruitt RN) History of Uterine Anomaly/JEAN: No (09/03/2016 12:35:Lauren Rogers RN) History of Infertility: No (09/03/2016 12:35:Lauren Rogers RN) History of ART Treatment: No (09/03/2016 12:35:Lauren Rogers RN) History of JEAN: No (09/03/2016 12:35:Lauren Rogers RN) Comments Obstetrical History: G1: current (09/03/2016 12:35:Lauren Rogers RN) MEDICAL HISTORY Med Hx Diabetes: No (09/03/2016 12:35:Lauren Rogers RN) Med Hx Hypertension: No (09/03/2016 12:35:Lauren Rogers RN) Med Hx Heart Disease: No (09/03/2016 12:35:Lauren Rogers RN) Med Hx Autoimmune Disorder: No (09/03/2016 12:35:Lauren Rogers RN) Med Hx Kidney Disease/UTI: No (09/03/2016 12:35:Lauren Rogers RN) Med Hx Neurologic/Epilepsy: No (09/03/2016 12:35:Lauren Rogers RN) Med Hx Psychiatric Disorders: No (09/03/2016 12:35:Lauren Rogers RN) Med Hx Hepatitis/Liver Disease: No (09/03/2016 12:35:Lauren Rogers RN) Med Hx Varicosities/Phlebitis: No (09/03/2016 12:35:Lauren Rogers RN) Med Hx Thyroid Dysfunction: No (09/03/2016 12:35:Lauren Rogers RN) Med Hx Trauma/Violence: No (09/03/2016 12:35:Lauren Rogers RN) Med Hx Blood Transfusion: No (09/03/2016 12:35:Lauren Rogers RN) Med Hx Pulmonary (Asthma,TB): No (09/03/2016 12:35:Lauren Rogers RN) Med Hx Breast: No (09/03/2016 12:35:Lauren Rogers RN) Med Hx PHOTOVOLTAIC TESTING TECHNICIAN Surgery: No (09/03/2016 12:35:Lauren Rogers RN) Med Hx Hospitalization/Surgery: No (09/03/2016 12:35:Lauren Rogers RN) Med Hx Anesthetic Complications: No (09/03/2016 12:35:Lauren Rogers RN) Med Hx Abnormal Pap Smear: No (09/03/2016 12:35:Lauren Rogers RN) Other Medical Diseases: No (09/03/2016 12:35:Lauren Rogers RN) Med Hx Significant Family Hx: No (09/03/2016 12:35:Lauren Rogers RN) Details of Med/Surg Hx: depression _ anxiety (on zoloft), homicidal ideation in past (09/03/2016 12:35:Lauren Rogers RN) INFECTIOUS HISTORY Inf Hx Gonorrhea: No (09/03/2016 12:35:Lauren Rogers RN) Inf Hx Chlamydia: No (09/03/2016 12:35:Lauren Rogers RN) Inf Hx Syphilis: No (09/03/2016 12:35:Lauren Rogers RN) Inf Hx HIV/AIDS: No (09/03/2016 12:35:Lauren Rogers RN) Inf Hx Human Papilloma Virus: No (09/03/2016 12:35:Lauren Rogers RN) Inf Hx Pt/Partner Genital Herpes: No (09/03/2016 12:35:Lauren Rogers RN) Inf Hx Tuberculosis/Exposure: No (09/03/2016 12:35:Lauren Rogers RN) Inf Hx Hepatitis B,C: No (09/03/2016 12:35:Lauren Rogers RN) Inf Hx Rash or Viral Illness: No (09/03/2016 12:35:Lauren Rogers RN) GENETIC HISTORY Gen Hx Age >=35 at JOYCE: No (09/03/2016 12:35:Lauren Rogers RN) Gen Hx Thalassemia: No (09/03/2016 12:35:Lauren Rogers RN) Gen Hx Congenital Heart Defect: No (09/03/2016 12:35:Lauren Rogers RN) Gen Hx Neural Tube Defect: No (09/03/2016 12:35:Lauren Rogers RN) Gen Hx Down's Syndrome: No (09/03/2016 12:35:Lauren Rogers RN) Gen Hx Keneny-Sachs: No (09/03/2016 12:35:Lauren Rogers RN) Gen Hx Freddy: No (09/03/2016 12:35:Lauren Rogers RN) Gen Hx Familial Dysautonomia: No (09/03/2016 12:35:Lauren Rogers RN) Gen Hx Sickle Cell Disease/Trait: No (09/03/2016 12:35:Lauren Rogers RN) Gen Hx Hemophilia/Blood Disorder: No (09/03/2016 12:35:Lauren Rogers RN) Gen Hx Muscular Dystrophy: No (09/03/2016 12:35:Lauren Rogers RN) Gen Hx Cystic Fibrosis: No (09/03/2016 12:35:Lauren Rogers RN) Gen Hx Huntingtons Chorea: No (09/03/2016 12:35:Lauren Rogers RN) Gen Hx Mental Retardation/Autism: No (09/03/2016 12:35:Lauren Rogers RN) Gen Hx Tested for Fragile X: No (09/03/2016 12:35:Lauren Rogers RN) Gen Hx Other Inher/Chromosomal: No (09/03/2016 12:35:Lauren Rogers RN) Gen Hx Maternal Metabolic DO: No (09/03/2016 12:35:Lauren Rogers RN) Gen Hx Pt Father or FOB Defect: No (09/03/2016 12:35:Lauren Rogers RN) Gen Hx Other Genetic History: No (09/03/2016 12:35:Lauren Rogers RN) Gen Hx Drugs/Meds since LMP: Yes (09/03/2016 12:35:Lauren Rogers RN) Gen Hx Medications: PNV, Zoloft (09/03/2016 12:35:Lauren Rogers RN)
--- NOTE | 2016-09-18 18:01 | L&D Current Admission ---
Current Admit Datetime Report Generated by CPN: 09/18/2016 18:00 ADMISSION INFORMATION Current Admit Date/Time: 09/17/2016 22:13 (09/17/2016 22:04:Shannan Luis RN) Reason for Admission: Onset of Labor; Rupture of Membranes (09/17/2016 22:04:Shannan Luis RN) Chief Complaint: Contractions (09/17/2016 22:04:Shannan Luis RN) Medications During : Vitamin; Sertraline (Zoloft) (09/17/2016 22:04:Angeles Pruitt RN) EGA per Dates: 39.1 (09/17/2016 22:04:QS system process) Method of Arrival: Wheelchair (09/17/2016 22:04:Shannan Luis RN) Records Available: Yes (09/17/2016 22:04:Shannan Luis RN) General Admission Information: Reviewed (09/17/2016 22:04:Angeles Pruitt RN) BELONGINGS/ADVANCED DIRECTIVES Comments Regarding Disposition: see belongings consent form (09/17/2016 22:04:Angeles Puritt RN) Advance Direct for Healthcare: No, and Wants No Information (09/17/2016 22:04:Shannan Luis RN) Durable Power of Groundskeeping Maintenance Worker: No (09/17/2016 22:04:Shannan Luis RN) Living Will: No (09/17/2016 22:04:Shannan Luis RN) Organ Donor: Undecided (09/17/2016 22:04:Shannan Luis RN) Pt Rights Information Given: Yes (09/17/2016 22:04:Shannan Luis RN) Pt Understands Pt Rights: Yes (09/17/2016 22:04:Shannan Luis RN) Patient Rights Comments: Pt access (09/17/2016 22:04:Shannan Luis RN) LEARNING ASSESSMENT Knowledge Level: Understands L_D Process; Understands Care Activities (09/17/2016 22:04:Shannan Luis RN) Barriers to Learning: None (09/17/2016 22:04:Shannan Luis RN) Learning Readiness: Motivated (09/17/2016 22:04:Shannan Luis RN) Learns Best By: 1 to 1 Instruction; Reading; Group Discussion; Demonstration (09/17/2016 22:04:Shannan Luis RN) DOMESTIC VIOLANCE SCREENING Dom Viol Threatened/Hurt: No (09/17/2016 22:04:Shannan Luis RN) Hx of Abuse/Neglect past 2yrs: No (09/17/2016 22:04:Shannan Luis RN) Feel Unsafe Going Home: No (09/17/2016 22:04:Shannan Luis RN) Addt'l Observ Indicating Abuse: No (09/17/2016 22:04:Shannan Luis RN) Reason Unable to Complete Screen: N/A, Screen Completed (09/17/2016 22:04:Shannan Luis RN) Considered Personal Harm/Suicide: No (09/17/2016 22:04:Shannan Luis RN) NUTRITIONAL/FUNCTIONAL SCREENING Problem with Appetite >5 Days: No (09/17/2016 22:04:Shannan Luis RN) Chew/Swallow Difficulties: No (09/17/2016 22:04:Shannan Luis RN) Inappropriate Wt Gain/Loss: No (09/17/2016 22:04:Shannan Luis RN) Presence Skin Breakdown/Ulcer: No (09/17/2016 22:04:Shannan Luis RN) Special Diet: No (09/17/2016 22:04:Shannan Luis RN) Pt Requests Vp Sales Visit: No (09/17/2016 22:04:Shannan Luis RN) Hx of Any of the Following?: N/A (09/17/2016 22:04:Shannan Luis RN) New Diagnosis of: N/A (09/17/2016 22:04:Shannan Luis RN) Requires Assist w/Ambulation: No (09/17/2016 22:04:Shannan Luis RN) Uses Assist Device to Ambulate: No (09/17/2016 22:04:Shannan Luis RN) Pt Requires Help w/ADL's: No (09/17/2016 22:04:Shannan Luis RN)
--- NOTE | 2016-09-18 18:16 | L&D Flow Sheet ---
LD Flowsheet Datetime Report Generated by CPN: 09/18/2016 18:15 Datetime: 09/18/2016 06:42 Temperature (F): 100.6 (July Ledgerwood, RN) Temperature (C): 38.1 (QS system process) Temperature Route: Oral (July Ledgerwood, RN) Datetime: 09/18/2016 06:28 NBP Sys/Becca/Mean (mmHg): 132 (QS system process) : 68 (QS system process) : 94 (QS system process) Pulse: 113 (QS system process) Respirations: 15 (July Ledgerwood, RN) Datetime: 09/18/2016 06:27 Pulse: 112 (QS system process) SpO2 (%): 99 (QS system process) Datetime: 09/18/2016 06:22 Pulse: 113 (QS system process) SpO2 (%): 97 (QS system process) Datetime: 09/18/2016 06:17 Pulse: 112 (QS system process) SpO2 (%): 96 (QS system process)
[2016-09-19] MEDS: CEFTRIAXONE 1 GM/D5W RTU 1 GM/50 ML RTUPB IV SCH (03:05)
[2016-09-19] MEDS: OXYCODONE-ACETAMINOPHEN 5-325 MG TABLET PO PRN ×3 (03:07→23:44)
--- NOTE | 2016-09-19 06:01 | L&D General Admission ---
General Admit Datetime Report Generated by CPN: 09/19/2016 06:00 INFORMATION Patient Age: 21 (09/03/2016 11:54:QS system process) EDC: 09/23/2016 00:00 (09/03/2016 12:35:Lauren Rogers RN) : 1 (09/03/2016 12:35:Lauren Rogers RN) Para: 0 (09/03/2016 12:35:Nevaeh Owens RN) Term: 0 (09/03/2016 12:35:Lauren Rogers RN) : 0 (09/03/2016 12:35:Lauren Rogers RN) Spontaneous Abortions: 0 (09/03/2016 12:35:Lauren Rogers RN) Induced Abortions: 0 (09/03/2016 12:35:Lauren Rogers RN) Livin (09/03/2016 12:35:Lauren Rogers RN) Cesareans: 0 (09/03/2016 12:35:Mare Diehl RN) VBACs: 0 (09/03/2016 12:35:Mare Diehl RN) Ectopic: 0 (09/03/2016 12:35:Mare Diehl RN) Multiple Births: 0 (09/03/2016 12:35:Mare Diehl RN) Baby, Number in Womb: 1 (09/03/2016 12:35:Nevaeh Owens RN) CARE Primary Adult Parole Officer: [facility] (09/03/2016 12:35:Lauren Rogers RN) Adult Parole Officer Other: [facility] (09/03/2016 12:35:Lauren Rogers RN) Adequate Care: Yes (09/03/2016 12:35:July Baig RN) Prepregnancy Weight (lb): 124 (09/03/2016 12:35:Lauren Rogers RN) Prepregnancy Weight (kg): 56.4 (09/03/2016 12:35:QS system process) Height (in): 66 (09/18/2016 06:47:QS system process) ALLERGIES Medication Allergy: No (09/03/2016 12:35:Lauren Rogers RN) Medication Allergies: No Known Allergies (09/18/2016) (09/18/2016 01:38:QS system process) Latex Allergy: No Latex Allergies (09/03/2016 12:35:Lauren Rogers RN) Food Allergies: none (09/03/2016 12:35:Angeles Pruitt RN) Environmental Allergies: none (09/03/2016 12:35:Angeles Pruitt RN) COMMUNICATION Primary Language: Norwegian (09/03/2016 12:35:Lauren Rogers RN) Medical Tx Preferred Language: Norwegian (09/03/2016 12:35:Lauren Rogers RN) DEMOGRAPHICS Address: [address] [place] [address] [place] [address] (09/03/2016 11:54:QS system process) Zipcode: [address] (09/03/2016 11:54:QS system process) Home (09/16/2016 21:35:QS system process) SSN: [id number] (09/03/2016 11:54:QS system process) Next of Kin Name: FARZAD LASSARD (09/03/2016 11:54:QS system process) Next of Kin (09/03/2016 11:54:QS system process) Next of Kin Relationship: OR (09/03/2016 11:54:QS system process) Date of : 1995 (09/03/2016 11:54:QS system process) Marital Status: Single (09/03/2016 11:54:QS system process) Sex: Female (09/03/2016 11:54:QS system process) Race: (09/03/2016 11:54:QS system process) Ethnicity: Non- or (09/03/2016 11:54:QS system process) Episcopalian: None (09/03/2016 11:54:QS system process) DRUG AND ALCOHOL USE Alcohol: No (09/03/2016 12:35:Lauren Rogers RN) Cigarettes: Never Smoker. 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: [facility] (09/03/2016 12:35:Lauren Rogers RN) Feeding Preference: Breast (09/03/2016 12:35:Lauren Rogers RN) Benefit of Breast Feed Discussed: Yes (09/03/2016 12:35:Lauren Rogers RN) Circumcision: Yes (09/03/2016 12:35:Lauren Rogers RN) Classes Attended: No (09/03/2016 12:35:Lauren Rogers RN) Tubal Ligation: No (09/03/2016 12:35:Lauren Rogers RN) Tubal Authorization Signed: N/A (09/03/2016 12:35:Lauren Rogers RN) Consent: N/A (09/03/2016 12:35:Lauren Rogers RN) Consent Signed: N/A (09/03/2016 12:35:Lauren Rogers RN) Pain Management Plans: Epidural (09/03/2016 12:35:Lauren Rogers RN) Plans for Labor and Delivery: None (09/03/2016 12:35:Lauren Rogers RN) Support Person: Farzad Ho (09/03/2016 12:35:Lauren Rogers RN) Support Person Relationship: Significant Other (09/03/2016 12:35:Lauren Rogers RN) Cultural/Spritual Practice: No (09/03/2016 12:35:Lauren Rogers RN) Spir/Cult Dietary Needs: No (09/03/2016 12:35:Lauren Rogers RN) LIVING SITUATION/DISCHARGE PLAN Living Arrangements: House (09/03/2016 12:35:Lauren Rogers RN) Adequate Access to:: Electric; Heat; Refrigeration; Plumbing/Running water; Phone; Transportation (09/03/2016 12:35:Lauren Rogers RN) WIC Program: Yes (09/03/2016 12:35:Lauren Rogers RN) Discharge Television News Producer Person: Sig other (09/03/2016 12:35:Lauren Rogers RN) Person to Help after Discharge: Sig other (09/03/2016 12:35:Lauren Rogers, RN) Currently Using Commun Resources: Yes (09/03/2016 12:35:Lauren Rogers RN) Specify Current Resource Used: food stamps (09/03/2016 12:35:Lauren Rogers RN) Outside Agency/Farm Adviser: No (09/03/2016 12:35:Lauren Rogers RN) Car Seat for Discharge: Yes (09/03/2016 12:35:Lauren Rogers RN) Adoption Requested: No (09/03/2016 12:35:Lauren Rogers RN) Pt Contact w/ Post : N/A (09/03/2016 12:35:Lauren Rogers RN) LABS Blood Type: A Positive (09/03/2016 12:35:Lauren Rogers RN) Antibody Screen: negative (09/03/2016 12:35:Lauren Rogers RN) Hemoglobin: 10.2 L (09/17/2016 22:07:QS system process) Hematocrit: 31.7 L (09/17/2016 22:07:QS system process) MCV: 76 L (09/17/2016 22:07:QS system process) Group Beta Strep: negative (09/03/2016 12:35:Lauren Rogers RN) Gonorrhea: Negative (09/03/2016 12:35:Lauren Rogers RN) Chlamydia: Negative (09/03/2016 12:35:Lauren Rogers RN) RPR/VDRL: Nonreactive (09/03/2016 12:35:Lauren Rogers RN) Rubella: Immune (09/03/2016 12:35:Lauren Rogers RN) Varicella: Non Susceptible (09/03/2016 12:35:Lauren Rogers RN) OB/PREVIOUS HISTORY Current Procedures: Ultrasound (09/03/2016 12:35:Lauren Rogers RN) History of Previous : No (09/03/2016 12:35:Lauren Rogers RN) History of Gestational Diabetes: No (09/03/2016 12:35:Lauren Rogers RN) History of PIH: No (09/03/2016 12:35:Lauren Rogers RN) History of Incompetent Cervix: No (09/03/2016 12:35:Lauren Rogers RN) History of Placenta Previa/Abrup: No (09/03/2016 12:35:Lauren Rogers RN) History of Macrosomia: No (09/03/2016 12:35:Lauren Rogers RN) History of IUGR: No (09/03/2016 12:35:Lauren Rogers RN) History of Hemorrhage: No (09/03/2016 12:35:Lauren Rogers RN) History of Loss/Stillborn: No (09/03/2016 12:35:Lauren Rogers RN) History of : No (09/03/2016 12:35:Lauren Rogers RN) History of D (Rh) Sensitization: No (09/03/2016 12:35:Lauren Rogers RN) History Recurrent Loss/Stillborn: No (09/03/2016 12:35:Lauren Rogers RN) History Depression/PP Depression: No (09/03/2016 12:35:Angeles Pruitt RN) History of Uterine Anomaly/JEAN: No (09/03/2016 12:35:Lauren Rogers RN) History of Infertility: No (09/03/2016 12:35:Lauren Rogers RN) History of ART Treatment: No (09/03/2016 12:35:Lauren Rogers RN) History of JEAN: No (09/03/2016 12:35:Lauren Rogers RN) Comments Obstetrical History: G1: current (09/03/2016 12:35:Lauren Rogers RN) MEDICAL HISTORY Med Hx Diabetes: No (09/03/2016 12:35:Lauren Rogers RN) Med Hx Hypertension: No (09/03/2016 12:35:Lauren Rogers RN) Med Hx Heart Disease: No (09/03/2016 12:35:Lauren Rogers RN) Med Hx Autoimmune Disorder: No (09/03/2016 12:35:Lauren Rogers RN) Med Hx Kidney Disease/UTI: No (09/03/2016 12:35:Lauren Rogers RN) Med Hx Neurologic/Epilepsy: No (09/03/2016 12:35:Lauren Rogers RN) Med Hx Psychiatric Disorders: No (09/03/2016 12:35:Lauren Rogers RN) Med Hx Hepatitis/Liver Disease: No (09/03/2016 12:35:Lauren Rogers RN) Med Hx Varicosities/Phlebitis: No (09/03/2016 12:35:Lauren Rogers RN) Med Hx Thyroid Dysfunction: No (09/03/2016 12:35:Lauren Rogers RN) Med Hx Trauma/Violence: No (09/03/2016 12:35:Lauren Rogers RN) Med Hx Blood Transfusion: No (09/03/2016 12:35:Lauren Rogers RN) Med Hx Pulmonary (Asthma,TB): No (09/03/2016 12:35:Lauren Rogers RN) Med Hx Breast: No (09/03/2016 12:35:Lauren Rogers RN) Med Hx INSULATION ENGINEMAN Surgery: No (09/03/2016 12:35:Lauren Rogers RN) Med Hx Hospitalization/Surgery: No (09/03/2016 12:35:Lauren Rogers RN) Med Hx Anesthetic Complications: No (09/03/2016 12:35:Lauren Rogers RN) Med Hx Abnormal Pap Smear: No (09/03/2016 12:35:Lauren Rogers RN) Other Medical Diseases: No (09/03/2016 12:35:Lauren Rogers RN) Med Hx Significant Family Hx: No (09/03/2016 12:35:Lauren Rogers RN) Details of Med/Surg Hx: depression _ anxiety (on zoloft), homicidal ideation in past (09/03/2016 12:35:Lauren Rogers RN) INFECTIOUS HISTORY Inf Hx Gonorrhea: No (09/03/2016 12:35:Lauren Rogers RN) Inf Hx Chlamydia: No (09/03/2016 12:35:Lauren Rogers RN) Inf Hx Syphilis: No (09/03/2016 12:35:Lauren Rogers RN) Inf Hx HIV/AIDS: No (09/03/2016 12:35:Lauren Rogers RN) Inf Hx Human Papilloma Virus: No (09/03/2016 12:35:Lauren Rogers RN) Inf Hx Pt/Partner Genital Herpes: No (09/03/2016 12:35:Lauren Rogers RN) Inf Hx Tuberculosis/Exposure: No (09/03/2016 12:35:Lauren Rogers RN) Inf Hx Hepatitis B,C: No (09/03/2016 12:35:Lauren Rogers RN) Inf Hx Rash or Viral Illness: No (09/03/2016 12:35:Lauren Rogers RN) GENETIC HISTORY Gen Hx Age >=35 at JOYCE: No (09/03/2016 12:35:Lauren Rogers RN) Gen Hx Thalassemia: No (09/03/2016 12:35:Lauren Rogers RN) Gen Hx Congenital Heart Defect: No (09/03/2016 12:35:Lauren Rogers RN) Gen Hx Neural Tube Defect: No (09/03/2016 12:35:Lauren Rogers RN) Gen Hx Down's Syndrome: No (09/03/2016 12:35:Lauren Rogers RN) Gen Hx Kenney-Sachs: No (09/03/2016 12:35:Lauren Rogers RN) Gen Hx Freddy: No (09/03/2016 12:35:Lauren Rogers RN) Gen Hx Familial Dysautonomia: No (09/03/2016 12:35:Lauren Rogers RN) Gen Hx Sickle Cell Disease/Trait: No (09/03/2016 12:35:Lauren Rogers RN) Gen Hx Hemophilia/Blood Disorder: No (09/03/2016 12:35:Lauren Rogers RN) Gen Hx Muscular Dystrophy: No (09/03/2016 12:35:Lauren Rogers RN) Gen Hx Cystic Fibrosis: No (09/03/2016 12:35:Lauren Rogers RN) Gen Hx Huntingtons Chorea: No (09/03/2016 12:35:Lauren Rogers RN) Gen Hx Mental Retardation/Autism: No (09/03/2016 12:35:Lauren Rogers RN) Gen Hx Tested for Fragile X: No (09/03/2016 12:35:Lauren Rogers RN) Gen Hx Other Inher/Chromosomal: No (09/03/2016 12:35:Lauren Rogers RN) Gen Hx Maternal Metabolic DO: No (09/03/2016 12:35:Lauren Rogers RN) Gen Hx Pt Father or FOB Defect: No (09/03/2016 12:35:Lauren Rogers RN) Gen Hx Other Genetic History: No (09/03/2016 12:35:Lauren Rogers RN) Gen Hx Drugs/Meds since LMP: Yes (09/03/2016 12:35:Lauren Rogers RN) Gen Hx Medications: PNV, Zoloft (09/03/2016 12:35:Lauren Rogers RN)
[2016-09-19] MEDS: IBUPROFEN 800 MG TABLET PO SCH ×4 (06:04→23:43)
--- NOTE | 2016-09-19 06:16 | L&D Care Plan ---
LD CARE PLANS Datetime Report Generated by CPN: 09/19/2016 06:15 Datetime: 09/17/2016 23:27 Pain State: Actual (Shannan Luis RN) Related To: Labor and Delivery Process (Shannan Luis RN) Goal(s): Patients Pain will be Assessed and Managed; Patient will Verbalize Adequate Relief of Pain or the Ability to [place] with Current Pain (Shannan Luis RN) Interventions: Assess Pain Severity on Scale of 0 (None) to 5 (Severe); Assess Type, Location and Intensity of Pain Each Time Client Reports Discomfort and Notify Provider if Unusal Pain Develops; Encourage Proper Breathing and Relaxation Techniques; Offer Alternatives Such as Repositioning, Calm Environment, Massages, Diversional Activities, Ice Pack, Splinting, and Ambulation; Administer Analgesics as Ordered; Assist with Epidural Placement as Appropriate; Evaluate Therapeutic Effectiveness of Medication and Treatments (Shannan Luis RN) Outcome: Patient will Report Absence or Relief of Pain Consistent with Established Pain Goal (Shannan Luis RN) Outcome: Patient will have a Decrease in Signs and Symptoms of Discomfort (Shannan Luis RN) Outcome: Pain will be Controlled During Procedures (Shannan Luis RN) Anxiety State: Risk For (Shannan Luis RN) Related To: Labor and Delivery Process; Fear of Unknown; Situational Crisis (Shannan Luis RN) Goal(s): Patient will have Decreased Anxiety and be able to Function at Acceptable Levels (Shannan Luis RN) Interventions: Assess Verbal and Nonverbal Behavioral Indicators of Anxiety; Assist Patient to Identify and Verbalize Symptoms of Anxiety; Identify and Demonstrate Techniques to Control Anxiety; Assist Patient with Coping Mechanisms to Manage Anxiety; Provide Theraputic Touch for the Patient; Explain to Patient, Using a Calm Reassuring Approach and Nonmedical Terms, All Activities, Procedures, and Concerns; Instruct Patient and Family about Post Discharge Care, Limitations, Symptoms to Report and Resources Available (Shannan Luis RN) Outcome: Patient will Identify, Verbalize and Demonstrate Techniques to Control Anxiety (Shannan Luis RN) Outcome: Patient's Posture, Facial Expressions, Gestures and Activity Level will Reflect Decreased Anxiety (Shannan Luis RN) Outcome: Patient will Verbalize a Sense of Control and/or Acceptance of the Situation (Shannan Luis RN) Outcome: Patient will Identify and Utilize Support Person (Shannan Luis RN) Knowledge Deficit State: Risk For (Shannan Luis RN) Related To: Impending Alterations in Family Dynamics (Shannan Luis RN) Goal(s): Patient will Accurately Verbalize Understanding of Plan of Care and Treatment; Patient and Family will Accurately Verbalize Understanding of the Disease Process (Shannan Luis RN) Interventions: Assess Motivation and Willingness of Patient/Family to Learn; Assess Preferred Learning Mode: One to One Instruction, Reading, Videos, Group Discussion or Demonstration; Assess Barriers to Learning: Pain, Emotional State, Language Barrier, Cognitive Impairment, Visual or Hearing Deficits; Assess Patient and Family Knowledge of Disease Process, Medications and Treatment; Discuss Therapy and/or Treatment Options, Describe Rationale Behind Management, Therapy and Treatment Recommendations; Instruct Patient and Family on Signs and Symptoms to Report; Instruct Patient and Family on Medication Effects and Side Effects; Provide Appropriate and Timely Education Using Multiple Techniques; Provide Patient and Family with Support Group Information and Resources; Give Clear and Thorough Explanations and Demonstrations (Shannan Luis RN) Outcome: Patient and Family will Verbalize Understanding of Condition, Treatment and Signs and Symptoms to Report (Shannan Luis RN) Outcome: Patient will Identify Perceived Learning Needs and Express Motivation to Learn (Shannan Luis RN) Outcome: Patient will Verbalize Understanding of Desired Content, and/or Performs Desired Skill Prior to Discharge (Shannan Luis RN) Infection State: Risk For (Shannan Luis RN) Related To: Surgical Procedures; Prolonged Labor or Induction (Shannan Luis RN) Goal(s): The Patient will be Free of Infection, Vital Signs Stable and Lab Work within Normal Parameters (Shannan Luis RN) Interventions: Instruct and Reinforce Proper Handwashing, Hygiene, and Care Techniques to Patient and Family; Monitor Vital Signs; Monitor Patient for the Following Signs of Infection: Fever, Abdominal Tenderness, Unusual Discharge; Monitor Aminiotic Fluid, Urine and Lochia for Color and Odor; Observe Wounds, Incisions and Invasive Line Sites for Redness, Drainage and Edema; Assess IV Sites per Hospital Policy; Monitor Lab and Test Results and Notify Provider of Abnormal Findings; Assess Nutritional Status and Promote Good Nutrition (Shannan Luis RN) Outcome: Patient will Remain Free of Infection (Shannan Luis RN) Outcome: Infection will be Recognized Early to Allow for Prompt Treatment (Shannan Luis RN) Outcome: Patient will have Vital Signs Within Expected Range (Shannan Luis RN) Fluid Volume State: Risk For (Shannan Luis RN) Related To: Prolonged Labor or Induction (Shannan Luis RN) Goal(s): Patient will Achieve and Maintain a Balanced Fluid Volume Status; Hemodynamically Stable (Shannan Luis RN) Interventions: Monitor Vital Signs; Auscultate Breath Sounds; Monitor Patient for Skin Turgor, Mucous Membranes, Dry Skin, Weakness, Headaches and Confusion; Provide Oral Fluids as Ordered; Initiate and Maintain Intravenous Fluids as Ordered; Monitor Intake and Output as Indicated Per Patient Status; Accurately Measure Blood Loss; Monitor Lab and Test Results as Obtained and Notify Provider of Abnormal Findings; Monitor Patient's Weight (Shannan Luis RN) Outcome: Patient will have Clear Lung Sounds (Shannan Luis RN) Outcome: Patient will have Vital Signs within Expected Range (Shannan Luis RN) Outcome: Urine Output will be within Expected Range (Shannan Luis RN) Outcome: Patient will have Minimal Generalized or Upper Extremity Edema (Shannan Luis RN) Injury State: Risk For (Shannan Luis RN) Related To: Labor and Delivery Process (Shannan Luis RN) Goal(s): Patient will Remain Free from Injury (Shannan Luis RN) Interventions: Monitoring as per Hospital Protocol; Assess Neurological Status; Perform Risk Assessment of Patients with Induction and ; Perform Fall Risk Assessment and Prevention per Hospital Protocol; Perform DVT Risk Assessment and Prophylaxis per Hospital Protocol; Ensure that Oxygen, Suction, and Resuscitation Medications and Equipment are Readily Available; Confirm Patient ID Prior to Procedure(s) and Medication Administration per Hospital Policy (Shannan Luis RN) Outcome: Successful Fall Risk Prevention (Shannan Luis RN) Outcome: Patient will Deliver without Adverse Sequela (Shannan Luis RN) Outcome: Patient's Neurological Status will Remain Stable (Shannan Luis RN) Impaired Skin Integrity State: Risk For (Shannan Luis RN) Related To: Vaginal Delivery (Shannan Luis RN) Goal(s): Patient will Maintain Optimal Skin Integrity, Free of Breakdown, Injury or Infection (Shannan Luis, SURI) Interventions: Complete Screening for Pressure Ulcer Risk and Initiate Protocol per Hospital Policy; Monitor Site of Skin Impairment for Color Changes, Redness, Swelling, Warmth, Pain or Other Signs of Infection; Encourage and Assist with Position Changes; Monitor Patient's Mobility Status; Provide Adequate Nutrition and Fluids; Teach Patient Appropriate Hygienic Care; Teach Patient/Family Skin Care Management (Shannan Luis, RN) Outcome: Patient will not have Evidence of Injury Such as Skin Breakdown, Scrapes, Cuts, or Bruising (Shannan Luis, RN) Outcome: Patient will Report Any Altered Sensation or Pain at Site of Skin Impairment (Shannan Luis, RN) Outcome: Patients Incisions and Wounds will be without Signs or Symptoms of Infection (Shannan Luis, RN) Outcome: Patient will Demonstrate Understanding of Plan to Heal Skin and Prevent Reinjury and Verbalize Risk Factors (Shannan Luis RN)
[2016-09-19 07:55] LABS: HEMATOCRIT 25.3 % (36.0-47.0); HEMOGLOBIN 8.4 g/dL (12.0-15.5); HGB HCT DIFFERENCE -0.1; MEAN CORPUSCULAR HEMOGLOBIN 25.2 pg (27.0-33.4); MEAN CORPUSCULAR HGB CONC 33.2 g/dL (32.0-36.0); MEAN CORPUSCULAR VOLUME 76 fl (80-97); RED BLOOD COUNT 3.34 10^6/uL (3.72-5.28); RED CELL DISTRIBUTION WIDTH 15.3 % (11.5-14.0); WHITE BLOOD COUNT 18.5 10^3/uL (4.0-10.5)
[2016-09-19] MEDS: DOCUSATE SODIUM 100 MG CAPSULE PO SCH ×2 (10:25→17:31)
[2016-09-19] MEDS: PRENATAL VITAMIN W-O CA NO5/FE FUMARATE/FA CAPSULE PO SCH (10:25)
--- NOTE | 2016-09-19 16:03 | PDOC PROGRESS REPORT ---
Subjective-OB Subjective: Post Delivery Day: 21 year old. Denies any needs at this time abdomen soft +flatus neg bm binder in place encouraged pt to ambulate infant in nicu would like to have discharge delayed until infant can go home. Physical Exam (OB) Vital Signs: Temp Pulse Resp BP Pulse Ox 97.6 F 88 16 120/70 98 09/19/16 15:45 09/19/16 15:45 09/19/16 15:45 09/19/16 13:33 09/19/16 15:45 Intake & Output 09/18/16 09/19/16 09/20/16 06:59 06:59 06:59 Intake Total 2304 600 Output Total 2600 Balance -296 600 Weight 78.25 kg - Dressing Removed: No - no drainage, swelling or redness noted Incision: Well Approximated Closure Type: Brian - Lochia Lochia Amount: Scant < 10 ml Lochia Color: Rubra/Red - Abdomen Description: Tender, Soft Hernia Present: No Fundal Description: Firm, Midline Fundal Height: u/u - u/2 Objective-Diagnostic Laboratory: 09/19/16 07:15 09/19/16 07:15 WBC 18.5 H RBC 3.34 L Hgb 8.4 L Hct 25.3 L MCV 76 L MCH 25.2 L MCHC 33.2 RDW 15.3 H Plt Count 237
[2016-09-20] MEDS: IBUPROFEN 800 MG TABLET PO SCH ×2 (06:17→11:07)
[2016-09-20 08:32] VITALS: BP 128/83
--- NOTE | 2016-09-20 09:10 | PDOC PROGRESS REPORT ---
Subjective-OB Subjective: Post Delivery Day: 21 year old. Denies any needs at this time. She will check with nursery re nesting room as baby to be hospitalized x 1 wk. Physical Exam (OB) Vital Signs: Temp Pulse Resp BP Pulse Ox 97.8 F 85 16 128/83 H 97 09/20/16 08:05 09/20/16 08:05 09/20/16 08:05 09/20/16 07:28 09/20/16 08:05 Intake & Output 09/19/16 09/20/16 09/21/16 06:59 06:59 06:59 Intake Total 2304 1200 Output Total 2600 Balance -296 1200 - Dressing Removed: No - christina open to air, no redness drainage or swelling noted Incision: Well Approximated Closure Type: Capron - Lochia Lochia Amount: Scant < 10 ml Lochia Color: Rubra/Red - Abdomen Description: Tender, Soft Hernia Present: No Bowel Sounds: Normoactive Flatus Presence: Present Stool: No Fundal Description: Firm, Midline Fundal Height: u/u - u/2 Objective-Diagnostic Laboratory: 09/19/16 07:15
--- NOTE | 2016-09-20 09:19 | PDOC DISCHARGE SUMMARY ---
Final Diagnosis Discharge Date: 09/20/16 - Final Diagnosis (1) Status post primary low transverse section Is this a current diagnosis for this admission?: Yes (2) CPD (cephalo-pelvic disproportion) Is this a current diagnosis for this admission?: Yes (3) High weight gain Is this a current diagnosis for this admission?: Yes (4) History of depression and anxiety Is this a current diagnosis for this admission?: Yes (5) Is this a current diagnosis for this admission?: Yes Discharge Data - Discharge Medication Home Medications: Pnv with Ca,No.72/Iron/FA [Pnv Plus Multivit Tab] 1 tab PO DAILY Sertraline HCl [Zoloft] 50 mg PO DAILY 09/03/16 Docusate Sodium [Colace 100 mg Capsule] 100 mg PO BID #30 capsule 09/20/16 Ferrous Sulfate 325 mg PO BID #60 tablet. 09/20/16 Ibuprofen [Motrin 800 mg Tablet] 800 mg PO Q6 #30 tablet 09/20/16 Oxycodone HCl/Acetaminophen [Percocet 5-325 mg Tablet] 1 tab PO Q4HP PRN #20 tablet 09/20/16 Gestational Age: 39.2 wks Reason(s) for Admission: Onset of Labor, Obstetric Complications Procedures: Ultrasound Intrapartum Procedure(s): : Low Cervical, Transverse - Barton Data Baby 1 Male at 1 minute: 6 at 5 minutes: 8 Weight: 4.082 kg Home with Mother: No Complications: Yes - infection - Diagnosis Test Laboratory: Temp Pulse Resp BP Pulse Ox 97.8 F 85 16 128/83 H 97 09/20/16 08:05 09/20/16 08:05 09/20/16 08:05 09/20/16 07:28 09/20/16 08:05 09/17/16 09/17/16 09/19/16 21:38 22:07 07:15 RBC 4.16 3.34 L Hgb 10.2 L 8.4 L Hct 31.7 L 25.3 L Urine Opiates Screen Cancelled - Discharge information/Instructions Discharge Activity: Activity As Tolerated, Balance Activity w/Rest, No Driving, No Lifting Over 10 Pounds, No Lifting/Push/Pulling, Pelvic Rest, Slowly Increase Activity, No tub bath Discharge Diet: Regular Disposition: HOME, SELF-CARE Follow [facility]: [facility]: 1, Weeks
[2016-09-20] MEDS: PRENATAL VITAMIN W-O CA NO5/FE FUMARATE/FA CAPSULE PO SCH (09:53)
[2016-09-20] MEDS: DOCUSATE SODIUM 100 MG CAPSULE PO SCH (09:54)
[2016-09-20 11:08] LABS: HEMATOCRIT 25.7 % (36.0-47.0); HEMOGLOBIN 8.4 g/dL (12.0-15.5); HGB HCT DIFFERENCE -0.5; MEAN CORPUSCULAR HEMOGLOBIN 25.2 pg (27.0-33.4); MEAN CORPUSCULAR HGB CONC 32.8 g/dL (32.0-36.0); MEAN CORPUSCULAR VOLUME 77 fl (80-97); RED BLOOD COUNT 3.35 10^6/uL (3.72-5.28); RED CELL DISTRIBUTION WIDTH 15.8 % (11.5-14.0); WHITE BLOOD COUNT 12.8 10^3/uL (4.0-10.5)
== END 2016-09-20 14:58 | disposition home or self-care (01) | DRG 766 ==
LOC: LC 21:28 → LR 21:51 → UNDOADMIN 21:54 → LR 21:54 → 2S 09-18 06:47
PROVIDERS: ADMIT Obstetrics & Gynecology; ATTEND Obstetrics & Gynecology
PROC: 10D00Z1 Extraction of Products of Conception, Low, Open Approach (ICD-10-PCS; principal; 2016-09-18)
PROC: 4A1HXCZ Monitoring of Products of Conception, Cardiac Rate, External Approach (ICD-10-PCS; 2016-09-18)
DX: O65.9 Obstructed labor due to maternal pelvic abnormality, unspecified (principal); O26.03 Excessive weight gain in pregnancy, third trimester; O99.344 Other mental disorders complicating childbirth; F32.9 Major depressive disorder, single episode, unspecified; F41.9 Anxiety disorder, unspecified; Z3A.39 39 weeks gestation of pregnancy; Z37.0 Single live birth
CPT/HCPCS: 1961; 36415; 81005; 85025; 85027; 86592; 86850; 86900; 86901; 90715; 94760; 94799; J0690; J0696; J1885; J2250; J2270; J2370; J2405; J2590; J3010; J3490

== ENCOUNTER 2017-01-28 23:22 | Emergency (ER) | payer OTHER, MEDICAID ==
--- NOTE | 2017-01-28 23:38 | ER Document Report ---
ED General - General Chief Complaint: Anxiety Stated Complaint: ANXIETY Time Seen by Provider: 01/28/17 23:28 Notes: 21-year-old female presents with complaint of depression. Her just lost a 4-month-old son today. They are both very depressed and upset and sad. She denies suicidal ideations. She says she needs help with the depression. They do not have much family in the area for support. Medications she takes his Neurontin which she is out of. She takes it for restless leg syndrome and depression. TRAVEL OUTSIDE OF THE [place] IN LAST 30 DAYS: No - Related Data Allergies/Adverse Reactions: No Known Allergies Allergy (Verified 01/28/17 23:46) Past Medical History - Social History Smoking Status: Unknown if Ever Smoked Frequency of alcohol use: None Drug Abuse: None Family History: Reviewed & Not Pertinent Psychiatric Medical History: Reports: Hx Depression Review of Systems - Review of Systems Notes: My Normal Review Basic REVIEW OF SYSTEMS: CONSTITUTIONAL : Denies fever, chills, or sweats. Denies recent illness. RESPIRATORY: Denies cough, cold, or chest congestion. Denies shortness of breath, difficulty breathing, or wheezing. GASTROINTESTINAL: Denies abdominal pain. Denies nausea, vomiting, or diarrhea. Denies constipation. Last BM: MUSCULOSKELETAL: Denies neck or back pain or joint pain or swelling. SKIN: Denies rash or skin lesions. NEUROLOGICAL: Denies altered mental status or loss of consciousness. Denies headache. Denies weakness or paralysis or loss of use of either side. Denies problems with gait or speech. Denies sensory or motor loss. PSYCHIATRIC: Severe depression ALL OTHER SYSTEMS REVIEWED AND NEGATIVE. Physical Exam - Vital signs Vitals: Temp Pulse Resp BP Pulse Ox 99.0 F 120 H 18 117/81 100 01/28/17 23:38 01/28/17 23:38 01/28/17 23:38 01/28/17 23:38 01/28/17 23:38 - Notes Notes: General Appearance: Well nourished, alert, cooperative, no acute distress, no obvious discomfort. Vitals: reviewed, See vital signs table. Head: no swelling or tenderness to the head Eyes: PERRL, EOMI, Conjuctiva clear Mouth: No decreasd moisture Lungs: No wheezing, No rales, No rhonci, No accessory muscle use, good air exchange bilaterally. Heart: Normal rate, Regular rythm, No murmur, no rub Extremities: strength 5/5 in all extremities, good pulses in all extremities, no swelling or tenderness in the extremities, no edema. Skin: warm, dry, appropriate color, no rash Neuro: speech clear, oriented x 3, normal affect, responds appropriately to questions. Psychiatric: tearful, depressed affect Course - Re-evaluation Re-evalutation: 01/29/17 03:24 Patient's drug screen did come back positive for amphetamines. She is unsure why this is. The only medication she takes gabapentin. She denies abusing any drugs. Patient is obviously emotionally upset and has good reason being that she lost her son today. Patient and her spouse about the upset and did not have a lot of local family support. Will have psychiatry talk with him in the morning to help discuss further supportive options. - Vital Signs Vital signs: Temp Pulse Resp BP Pulse Ox 99.0 F 120 H 18 117/81 100 01/28/17 23:38 01/28/17 23:38 01/28/17 23:38 01/28/17 23:38 01/28/17 23:38 - Laboratory Result Diagrams: 01/28/17 23:45 01/28/17 23:45 Laboratory results interpreted by me: 01/28/17 01/28/17 01/28/17 23:25 23:45 23:45 MCV 74 L MCH 24.1 L RDW 20.7 H Total Protein 8.8 H Urine Protein 30 H Urine Ketones TRACE H Ur Leukocyte Esterase LARGE H Salicylates < 1.0 L Acetaminophen < 10 L - EKG Interpretation by Me Additional EKG results interpreted by me: 01/29/17 00:02 He is reviewed and interpreted by me. EKG shows sinus tachycardia with a rate of [address] segment elevation or depression. No ischemic T-wave inversions. MI interval, QRS duration, QTc intervals are within normal range. No old EKG available for comparison Discharge - Discharge Clinical Impression: Depression Qualifiers: Depression Type: unspecified Qualified Code(s): F32.9 - Major depressive disorder, single episode, unspecified Condition: Stable Instructions: Anxiety ([facility])
[2017-01-28 23:53] LABS: ABSOLUTE MONOCYTES (AUTO) 0.4 10^3/uL (0.1-1.4); ABSOLUTE NEUT (AUTO) 4.4 10^3/uL (1.7-8.2); BASOPHILS % (AUTO) 0.3 % (0-2); EOSINOPHILS % (AUTO) 0.1 % (0-6); HEMATOCRIT 37.7 % (36.0-47.0); HEMOGLOBIN 12.2 g/dL (12.0-15.5); HGB HCT DIFFERENCE -1.1; LYMPHOCYTES % (AUTO) 17.7 % (13-45); MEAN CORPUSCULAR HEMOGLOBIN 24.1 pg (27.0-33.4); MEAN CORPUSCULAR HGB CONC 32.4 g/dL (32.0-36.0); MEAN CORPUSCULAR VOLUME 74 fl (80-97); MONOCYTES % (AUTO) 6.6 % (3-13); RED BLOOD COUNT 5.08 10^6/uL (3.72-5.28); RED CELL DISTRIBUTION WIDTH 20.7 % (11.5-14.0); SEGMENTED NEUTROPHILS % (AUTO) 75.3 % (42-78); WHITE BLOOD COUNT 5.8 10^3/uL (4.0-10.5)
[2017-01-28] MEDS ORDERED: LORAZEPAM 1 MG TABLET PO ONE (23:56)
[2017-01-29 00:07] LABS: ALANINE AMINOTRANSFERASE 28 U/L (9-52); ALBUMIN 4.8 g/dL (3.5-5.0); ALKALINE PHOSPHATASE 70 U/L (38-126); ANION GAP 15 (5-19); ASPARTATE AMINO TRANSFERASE 18 U/L (14-36); BILIRUBIN,DIRECT 0.3 mg/dL (0.0-0.4); BILIRUBIN,TOTAL 0.6 mg/dL (0.2-1.3); BLOOD UREA NITROGEN 11 mg/dL (7-20); CALCIUM 9.8 mg/dL (8.4-10.2); CARBON DIOXIDE 22 mmol/L (22-30); CHLORIDE 105 mmol/L (98-107); CREATININE RESULT 0.69 mg/dL (0.52-1.25); GLUCOSE 96 mg/dL (75-110); POTASSIUM 4.5 mmol/L (3.6-5.0); SODIUM 142.2 mmol/L (137-145); TOTAL PROTEIN 8.8 g/dL (6.3-8.2)
[2017-01-29 00:10] LABS: ALCOHOL < 10 mg/dL (NONE DETECTED)
[2017-01-29 00:12] LABS: APPEARANCE,URINE CLOUDY; BILIRUBIN,URINE NEGATIVE (NEGATIVE); GLUCOSE, URINE NEGATIVE (NEGATIVE); KETONES,URINE TRACE mg/dL (NEGATIVE); LEUKOCYTE ESTERASE,URINE LARGE (NEGATIVE); NITRITE,URINE NEGATIVE (NEGATIVE); PROTEIN,URINE 30 mg/dL (NEGATIVE); URINE SPECIFIC GRAVITY 1.019; UROBILINOGEN,URINE NEGATIVE mg/dL (<2.0)
[2017-01-29 00:24] LABS: URINE BARBITURATES SCREEN NEGATIVE; URINE METHADONE SCREEN NEGATIVE; URINE OPIATES LOW NEGATIVE; URINE PHENCYCLIDINE SCREEN NEGATIVE
[2017-01-29] MEDS ORDERED: HYDROXYZINE PAMOATE 50 MG CAPSULE PO ONE (00:56)
--- NOTE | 2017-01-29 08:35 | EKG REPORT ---
SEVERITY:- ABNORMAL ECG - SINUS TACHYCARDIA PROBABLE LEFT ATRIAL ABNORMALITY CONSIDER RIGHT VENTRICULAR HYPERTROPHY INFERIOR Q WAVES, PROBABLY NORMAL VARIATION : Confirmed by: Bryn Frye 29-Jan-2017 08:34:53
[2017-01-29] MEDS ORDERED: LORAZEPAM 1 MG TABLET PO ONE (10:25)
--- NOTE | 2017-01-29 10:27 | ER Document Report ---
ED Psych Disorder / Suicide - General Chief Complaint: Anxiety Stated Complaint: ANXIETY Time Seen by Provider: 01/28/17 23:28 TRAVEL OUTSIDE OF THE [place] IN LAST 30 DAYS: No - Related Data Allergies/Adverse Reactions: No Known Allergies Allergy (Verified 01/28/17 23:46) Home Medications: Current Home Medications Gabapentin [Gabapentin] 400 mg PO TID 01/29/17 [History] Past Medical History - Social History Smoking Status: Unknown if Ever Smoked Frequency of alcohol use: None Drug Abuse: None Family History: Reviewed & Not Pertinent Psychiatric Medical History: Reports: Hx Depression Physical Exam - Vital signs Vitals: Temp Pulse Resp BP Pulse Ox 99.0 F 120 H 18 117/81 100 01/28/17 23:38 01/28/17 23:38 01/28/17 23:38 01/28/17 23:38 01/28/17 23:38 Course - Re-evaluation Re-evalutation: 01/29/17 10:26 Patient evaluated approximately 10:15 AM. Patient states she is having problems with anxiety and some nausea. She states she has had no vomiting or diarrhea but just feels nauseated. She thinks it may be due to anxiety. She denies any other concerns. She is currently awaiting placement. - Vital Signs Vital signs: Temp Pulse Resp BP Pulse Ox 98.8 F 101 H 15 96/68 L 99 01/29/17 05:07 01/29/17 05:07 01/29/17 05:07 01/29/17 05:07 01/29/17 05:07 - Laboratory Result Diagrams: 01/28/17 23:45 01/28/17 23:45 Laboratory results interpreted by me: 01/28/17 01/28/17 01/28/17 23:25 23:45 23:45 MCV 74 L MCH 24.1 L RDW 20.7 H Total Protein 8.8 H Urine Protein 30 H Urine Ketones TRACE H Ur Leukocyte Esterase LARGE H Salicylates < 1.0 L Acetaminophen < 10 L Discharge - Discharge Clinical Impression: Depression Qualifiers: Depression Type: unspecified Qualified Code(s): F32.9 - Major depressive disorder, single episode, unspecified Condition: Stable Instructions: Anxiety ([facility])
--- NOTE | 2017-01-29 10:58 | ER Document Report ---
ED Psych Disorder / Suicide - General Information source: Patient, Relative - Aunt/Uncle, Friend - boyfriend TRAVEL OUTSIDE OF THE [place] IN LAST 30 DAYS: No - HPI Patient complains to provider of: Other - anxiety/grief Onset: Just prior to arrival Onset was: Sudden Suicide Risk Factors: Depressed, Lack of social support, Substance abuse Situational problems related to: Recent - 4 mo old baby unexpectedly Normal mood: No Associated symptoms: Anxious, Flat affect Similar symptoms previously: Yes Recently seen / treated by doctor: Yes - [facility] <NINO GARDINER - Last Filed: 01/29/17 10:20> <FEDERICO LEIJA - Last Filed: 01/29/17 11:59> - General Chief Complaint: Anxiety Stated Complaint: ANXIETY Time Seen by Provider: 01/28/17 23:28 - HPI Notes: Patient is a 21 year old female who presents with c/o anxiety and sadness due to the abrupt of her 4 month old baby. Patient states she and her boyfriend have little to no supports in the area. She states they reside in [place] and do not have their own transportation to and from appointments and would like her medication adjusted to "whatever they game me last night." Patient states her baby was found in his crib . She states her best guess is he suffocated. She states she has not yet had her breakdown about his , but states her boyfriend has. Patient states she has not contacted her only local family members to notify as of yet. Patient denies SI.HI. Patient did provide consent and contact information to speak with her Aunt and specifically notify her of the baby's as well as request her assistance. Patient spoke extensively about her prescription for Gabapentin, its efficacy, and the need for something stronger. Patient additionally requested Klonopin for her boyfriend. [place] controlled [place] registry suggests prescriptions for Suboxone, Klonopin, etc. AuntSol states: She spoke briefly with the patient who told her she was not ready to talk about it, but that something happened. Aunt made aware that patient provided consent to disclose the incident. Aunt made aware and states she sill presents as soon as possible and provide support to the patient. Patient is A&O. Mood is euthymic with flat affect. Patient denies suicidal/ homicidal ideations, intent, plan or means. Patient denies A/V H; delusions not noted. Thought processes were organized, and focused on medication management. Conversational speech was WNL. Intellectual abilities were estimated within average range. Attention and focus were fair. Insight, judgment, and impulse control were poor. Unspecified Anxiety Disorder Patient is psychiatrically cleared for discharge. Patient is recommended to follow up with her provider as soon as possible. Patient was provided resources to assist her, to include mobile crisis with [facility]. Patient's aunt will present bedside and assist the patient home. I consulted with Dr. Mascorro in regards to the care and management of this patient. (NINO GARDINER) - Related Data Allergies/Adverse Reactions: No Known Allergies Allergy (Verified 01/28/17 23:46) Home Medications: Current Home Medications Gabapentin [Gabapentin] 400 mg PO TID 01/29/17 [History] Past Medical History - General Information source: Patient, Relative, Friend, [facility] Records - Social History Smoking Status: Unknown if Ever Smoked Frequency of alcohol use: None Drug Abuse: None Family History: Reviewed & Not Pertinent Patient has suicidal ideation: No Patient has homicidal ideation: No Psychiatric Medical History: Reports: Hx Depression <NINO GARDINER - Last Filed: 01/29/17 10:20> Course - Laboratory Result Diagrams: 01/28/17 23:45 01/28/17 23:45 <NINO GARDINER - Last Filed: 01/29/17 10:20> - Laboratory Result Diagrams: 01/28/17 23:45 01/28/17 23:45 <FEDERICO LEIJA - Last Filed: 01/29/17 11:59> - Vital Signs Vital signs: Temp Pulse Resp BP Pulse Ox 98.8 F 101 H 15 96/68 L 99 01/29/17 05:07 01/29/17 05:07 01/29/17 05:07 01/29/17 05:07 01/29/17 05:07 - Laboratory Laboratory results interpreted by me: 01/28/17 01/28/17 01/28/17 23:25 23:45 23:45 MCV 74 L MCH 24.1 L RDW 20.7 H Total Protein 8.8 H Urine Protein 30 H Urine Ketones TRACE H Ur Leukocyte Esterase LARGE H Salicylates < 1.0 L Acetaminophen < 10 L Discharge <NINO GARDINER - Last Filed: 01/29/17 10:20> <FEDERICO LEIJA - Last Filed: 01/29/17 11:59> - Discharge Clinical Impression: Depression Qualifiers: Depression Type: unspecified Qualified Code(s): F32.9 - Major depressive disorder, single episode, unspecified Condition: Stable Disposition: HOME, SELF-CARE Instructions: Anxiety ([facility]) Additional Instructions: Anxiety The physician feels that some of your health problems are being caused by anxiety. Anxiety affects your health in many ways. Anxiety alone can cause palpitations, sweats, chest pains, abdominal pains, shortness of breath, and headaches. It contributes to ulcer disease, high blood pressure, irritable bowel syndrome, and has been shown to cause flare-ups of many other diseases. Anxiety is not a simple disorder to treat. If the anxiety is due to recent life stresses, you may simply need time to "work through" the changes. If the anxiety is due to an underlying unhappiness with yourself or due to psychiatric disturbance, professional help will be needed. Your physician can refer you for further help if needed. Anti-anxiety medication is occasionally given if the stress is acute or if you are having trouble sleeping. Chronic or frequent use of these medications is not a good idea because the body becomes reliant on it, preventing you from dealing with life's normal stresses. Please follow up with your provider to discuss your home medications. Please engage in counseling as possible to assist you with coping during this difficult time. Please return if your symptoms worsen. Referrals: [facility] [Provider Group] - Follow up in 3-5 days
[2017-01-29 12:32] VITALS: BP 113/71
== END 2017-01-29 12:32 | disposition home or self-care (01) ==
LOC: ER 23:22
DX: F32.9 Major depressive disorder, single episode, unspecified (principal); F41.9 Anxiety disorder, unspecified; Z79.899 Other long term (current) drug therapy
CPT/HCPCS: 93005; 99284; 36415; 80307 ×4; 84703; 85025; 80053; 81001; 93010; J3490

== ENCOUNTER 2017-12-11 19:06 | Emergency (ER) | payer MEDICAID, OTHER ==
--- NOTE | 2017-12-11 21:29 | ER Document Report ---
ED General - General Chief Complaint: Anxiety Stated Complaint: ANXIOUS,CAN'T SLEEP Time Seen by Provider: 12/11/17 19:31 TRAVEL OUTSIDE OF THE [place] IN LAST 30 DAYS: No - HPI Patient complains to provider of: Insomnia anxiety Notes: Patient coming in for evaluation of insomnia and anxiety. Patient states to have traumatic event loss of the child years prior to arrival patient states she has been on Ambien for sleep however has ran out and had difficulty sleeping last few days. Patient states she has tried Unisom with no success. Patient also states she feels slightly anxious mood HI and SI patient states that she currently does not have Medicaid and Medicare although he does have an off brand of insurance however has not found a psychiatric provider here in [facility] that will accept her insurance. Patient otherwise is alert and oriented very pleasant denies any other symptoms fevers chills vomiting diarrhea patient does states she does have some slight nausea is unaware of her status - Related Data Allergies/Adverse Reactions: No Known Allergies Allergy (Verified 01/28/17 23:46) Past Medical History - Social History Smoking Status: Current Every Day Smoker Chew tobacco use (# tins/day): No Frequency of alcohol use: None Drug Abuse: None Family History: Reviewed & Not Pertinent Patient has suicidal ideation: No Patient has homicidal ideation: No Renal/ Medical History: Denies: Hx Peritoneal Dialysis Psychiatric Medical History: Reports: Hx Depression Past Surgical History: Reports: Hx Section Review of Systems - Review of Systems Constitutional: No symptoms reported EENT: No symptoms reported Cardiovascular: No symptoms reported Respiratory: No symptoms reported Gastrointestinal: No symptoms reported Genitourinary: No symptoms reported Female Genitourinary: No symptoms reported Musculoskeletal: No symptoms reported Skin: No symptoms reported Hematologic/Lymphatic: No symptoms reported Neurological/Psychological: Anxiety -: Yes All other systems reviewed and negative Physical Exam - Vital signs Vitals: Temp Pulse Resp BP Pulse Ox 98.2 F 109 H 16 115/72 97 12/11/17 19:16 12/11/17 19:16 12/11/17 19:16 12/11/17 19:16 12/11/17 19:16 Interpretation: Normal - General General appearance: Appears well, Alert - HEENT Head: Normocephalic, Atraumatic Eyes: Normal Pupils: PERRL - Respiratory Respiratory status: No respiratory distress Chest status: Nontender Breath sounds: Normal Chest palpation: Normal - Cardiovascular Rhythm: Regular Heart sounds: Normal auscultation Murmur: No - Abdominal Inspection: Normal Distension: No distension Bowel sounds: Normal Tenderness: Nontender Organomegaly: No organomegaly - Back Back: Normal, Nontender - Extremities General upper extremity: Normal inspection, Nontender, Normal color, Normal ROM , Normal temperature General lower extremity: Normal inspection, Nontender, Normal color, Normal ROM , Normal temperature, Normal weight bearing. No: Marco's sign - Neurological Neuro grossly intact: Yes Cognition: Normal Orientation: AAOx4 [place] Coma Scale Eye Opening: Spontaneous Juan C Coma Scale Verbal: Oriented Juan C Coma Scale Motor: Obeys Commands Juan C Coma Scale Total: 15 Speech: Normal Motor strength normal: LUE, RUE, LLE, RLE Sensory: Normal - Psychological Associated symptoms: Normal affect, Normal mood - Skin Skin Temperature: Warm Skin Moisture: Dry Skin Color: Normal Course - Re-evaluation Re-evalutation: 12/11/17 23:28 Patient test is negative. Long discussion with patient at this time patient is not desire to stay to talk to her our psychiatric providers in the morning. A reviewed patient's narcotic database does show prescriptions for Ambien in the past. Patient also is requesting something to "show her out. The offer the patient a trial of Vistaril not only to aid with sleep but also Daryn anxiety. Patient states that she would like to give this a try however she would like a prescription for her Ambien. Explained to patient I would provide this however she is not to take both together patient states understanding and states compliance with this medication plan we will trial the patient on Vistaril however she will be given for Ambien if this is not successful - Vital Signs Vital signs: Temp Pulse Resp BP Pulse Ox 97.7 F 91 16 115/75 98 12/11/17 22:14 12/11/17 22:14 12/11/17 22:14 12/11/17 22:14 12/11/17 22:14 Discharge - Discharge Clinical Impression: Anxiety Insomnia Qualifiers: Insomnia type: unspecified Qualified Code(s): G47.00 - Insomnia, unspecified Disposition: HOME, SELF-CARE Instructions: Anxiety ([facility]), Insomnia ([facility]) Additional Instructions: Follow-up with one the resources provided. Your laboratory studies shows that you are not . Return to ER symptoms worsen. Take medications as prescribed. Try the Vistaril to help with sleep do not take the Vistaril and the Ambien together. Prescriptions: Hydroxyzine Pamoate [Vistaril 50 mg Capsule] 50 mg PO QHS #7 capsule Zolpidem Tartrate [Ambien 5 mg Tablet] 5 mg PO HSP PRN #7 tablet PRN Reason:
[2017-12-11] MEDS ORDERED: HYDROXYZINE PAMOATE 25 MG CAPSULE (4 CAP/ER DISP) PO SCH (22:00)
[2017-12-11 22:37] VITALS: BP 115/75
== END 2017-12-11 22:15 | disposition home or self-care (01) ==
LOC: ER 19:06
DX: F41.9 Anxiety disorder, unspecified (principal); G47.00 Insomnia, unspecified; T42.6X6A Underdosing of other antiepileptic and sedative-hypnotic drugs, initial encounter; Z91.128 Patient's intentional underdosing of medication regimen for other reason; Z91.14 Patient's other noncompliance with medication regimen; R11.0 Nausea; F17.200 Nicotine dependence, unspecified, uncomplicated
CPT/HCPCS: 99283; 81025; J3490

== ENCOUNTER 2017-12-24 15:19 | Emergency (ER) | payer MEDICAID, OTHER ==
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
--- NOTE | 2017-12-24 16:14 | RADIOLOGY REPORT (SQ) ---
EXAM DESCRIPTION: KNEE LEFT 4 VIEW COMPLETED DATE/TIME: 12/24/2017 4:04 pm REASON FOR STUDY: Pain s/p fall yesterday, Overextended knee COMPARISON: None. NUMBER OF VIEWS: Four views. TECHNIQUE: AP, lateral, and both oblique radiographic images acquired of the left knee. LIMITATIONS: None. FINDINGS: MINERALIZATION: Normal. BONES: No acute fracture or dislocation. No worrisome bone lesions. JOINT: No effusion. SOFT TISSUES: No soft tissue swelling. No radio-opaque foreign body. OTHER: No other significant finding. IMPRESSION: NEGATIVE STUDY OF THE LEFT KNEE. NO RADIOGRAPHIC EVIDENCE OF ACUTE INJURY. TECHNICAL DOCUMENTATION: JOB ID: [id number] [employer]- All Rights Reserved Reading location - IP/workstation name: [email or web address]
[2017-12-24 17:37] VITALS: BP 118/68
== END 2017-12-24 17:40 | disposition home or self-care (01) ==
LOC: ER 15:19
DX: S89.92XA Unspecified injury of left lower leg, initial encounter (principal); V00.131A Fall from skateboard, initial encounter; Y93.51 Activity, roller skating (inline) and skateboarding
CPT/HCPCS: 99283